=== PATIENT | female | born 1940 | race Caucasian/White ===

== ENCOUNTER → 2018-09-23 | Outpatient (CLI) | payer OTHER ==
[~2018-09-23] MED LIST: BUPROPION75 MG PO; CALCIUM 6001 TA1 PO; FLUOXETINE20 MG PO; LEVOTHYROXIN0.125 MG PO; LISINOPRIL/HCTZ1 TA3 PO; MULTIVITAMIN1 CTB PO; NORTRIPTYLINE50 MG PO; OCUVITE1 TA1 PO; OMEPRAZOLE20 M1; OMEPRAZOLE20 MG PO; PRAVASTATIN SOD40 MG PO; ROPINIROLE HYDRO2 M1 PO
[2018-09-25 22:04] LABS: ALTERNARIA ALTERNATA, IGE <0.10 kU/L (Class 0); AMERICAN ELM, IGE <0.10 kU/L (Class 0); ASPERGILLUS FUMIGATU, IGE <0.10 kU/L (Class 0); BERMUDA GRASS, IGE <0.10 kU/L (Class 0); BIRCH, COMMON SILVER IGE <0.10 kU/L (Class 0); CLADOSPORIUM HERBARU, IGE <0.10 kU/L (Class 0); CORN, IGE <0.10 kU/L (Class 0); D FARINAE MITE <0.10 kU/L (Class 0); D PTERONYSSINUS <0.10 kU/L (Class 0); DOG DANDER, IGE <0.10 kU/L (Class 0); IMMUNOGLOBULIN IgE 002170 19 IU/mL (0-100); MAPLE LEAF SYCAMORE, IGE <0.10 kU/L (Class 0); MAPLE/BOX ELDER, IGE <0.10 kU/L (Class 0); MILK (COW), IGE <0.10 kU/L (Class 0); MOUSE URINE IGE <0.10 kU/L (Class 0); PEANUT, IGE <0.10 kU/L (Class 0); PENICILLIUM CHRYSOGENUM, IGE <0.10 kU/L (Class 0); ROUGH PIGWEED, IGE <0.10 kU/L (Class 0); SHEEP SORREL (DOCK), IGE <0.10 kU/L (Class 0); SHORT RAGWEED, IGE <0.10 kU/L (Class 0); SOYBEAN, IGE <0.10 kU/L (Class 0); TIMOTHY, IGE <0.10 kU/L (Class 0); WALNUT TREE, IGE <0.10 kU/L (Class 0); WHEAT, IGE <0.10 kU/L (Class 0); WHITE ASH, IGE <0.10 kU/L (Class 0); WHITE MULBERRY, IGE <0.10 kU/L (Class 0); WHITE OAK, IGE <0.10 kU/L (Class 0)
== END | disposition home or self-care (01) ==
LOC: LAB 13:26
PROVIDERS: Family Medicine
DX: J31.0 Chronic rhinitis (principal)

== ENCOUNTER 2019-06-08 14:38 | Inpatient (IN) | payer OTHER ==
[~2019-06-08] VITALS: Ht 167.6 cm; Wt 98.9 kg
--- NOTE | ~2019-06-08 | CON ---
[place], [place] REPORT OF CONSULTATION NAME: HILARY WIGGINS UNIT #: [id number] ROOM: 411 DOCTOR: ZEUS LANDIN MD BIRTHDATE: [birth year] DOS: 06/08/2019 HISTORY OF PRESENT ILLNESS: The patient is a 79-year-old who has been known to our service because of the multiple antral ulceration linear in character post biopsies. The patient has been on aggressive therapy. Apparently, the patient discharged and readmitted today after not feeling well. The patient had a panel of blood work done and was found to have H and H of 12 and 40. Microcytic indices. INR was 1.1. Comprehensive metabolic panel elevated creatinine. Basic metabolic normal. Chest x-ray, no acute process. PAST MEDICAL HISTORY: Hypertension, AFib, depression, hypothyroidism, and hyperlipidemia. PAST SURGICAL HISTORY: Hysterectomy, cholecystectomy, and bilateral knee. SOCIAL HISTORY: Nonsmoker, nonalcohol consumer. FAMILY HISTORY: Noncontributory. ALLERGIES: PENICILLIN. MEDICATIONS: List has been reviewed. REVIEW OF SYSTEMS: HEENT: Denies double vision, blurred vision. RESPIRATORY: Admits to shortness of breath. CARDIOVASCULAR: Denies chest pain. DIGESTIVE SYSTEM: Gastric ulcers. PHYSICAL EXAMINATION: VITAL SIGNS: Stable. HEENT: Benign. NECK: Supple, no thyromegaly, no cervical lymphadenopathy. CHEST: Symmetric anatomy, decreased air entry. HEART: Normal sinus rhythm, no gallop, no murmur. ABDOMEN: Soft. No hepato-organomegaly. Bowel sounds present. Obesity. EXTREMITIES: No cyanosis, no pedal edema. NEUROLOGIC: Alert, oriented to time, place, and person. IMPRESSION: Readmission GI bleed and multi-antral ulcers. PLAN AND DISCUSSION: Continuation with Carafate, Protonix therapy, and clinical reassessment. Other adjunctive diagnoses has already been reassessed. [place], [place] REPORT OF CONSULTATION NAME: HILARY WIGGINS UNIT #: [id number] ROOM: 411 DOCTOR: ZEUS LANDIN MD BIRTHDATE: [birth year] ZEUS LANDIN MD CM:CONSTR:REPORT OF CONSULTATION [id number] 06/09/19 0659 interface
--- NOTE | ~2019-06-08 | EKG ---
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 RESP : 1940 Requested By: YOBANI LYNCH Order Number: [id number] Reading MD: Taylor Corado Measurements Intervals [place] Rate: 68 P: 50 MT: 136 QRS: -9 QRSD: 80 T: 100 QT: 531 QTc: 565 Interpretive Statements Sinus rhythm Borderline repolarization abnormality Prolonged QT interval Baseline wander in lead(s) II,III,aVF Compared to ECG 06/02/2019 15:55:52 Prolonged QT interval now present Atrial-paced complex(es) or rhythm no longer present Ventricular-paced complex(es) or rhythm no longer present T-wave abnormality no longer present Electronically Signed On 06-09-2019 5:46:52 PDT by Taylor Corado CM:EKGRPT:ELECTROCARDIOGRAM REPORT [id number] YOBANI WILKERSON DRAFT REPORT YOBANI LYNCH M.D.
--- NOTE | ~2019-06-08 | EKG ---
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
--- NOTE | ~2019-06-08 | O ---
[place], [place] OPERATIVE NOTE NAME: HILARY WIGGINS UNIT #: [id number] ROOM: 426 DOCTOR: ZEUS LANDIN MD BIRTHDATE: [birth year] DOS: 06/12/2019 GASTROENDOSCOPIC REPORT This is a 79-year-old patient who has presented with chief complaint of multi issues, suspected sepsis, incidentally find pneumobilia, persistence of her distress and eventually we were concerned if there is other etiologies to the pneumobilia of any fistulization and expected biliary leak out of previous knowledge. PROCEDURE: Today's procedure part of investigation is ERCP plus balloon sweep of common duct. PREMEDICATION: Propofol. SCOPE: Olympus side-viewing duodenoscope. REPORT: After putting the patient in left lateral position and application of lubricant to the scope, the scope was then entered. Thereafter, under direct visualization, advanced through the length of esophagus into the gastric pouch into duodenum. Ampulla of Vater was defined. This is exactly next to the duodenal diverticulum and periampullary diverticulum was photographed, cannulization of common duct directly was done and guidewire was negotiated to right hepatic radicle. A balloon size 12 was introduced over it, sweep of common duct produces no stone, no other pathology. Empty duct was documented after multiple sweeps, no leakage of dye outside expected anatomy was noticed. The patient extubated, tolerated the procedure well. 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 PLAN AND DISCUSSION: No contribution of biliary tract to her underlying distress that she is having. Plan and discussion, supportive management, pneumobilia is expected and is benign in her case. Thank you very much indeed for your kind referral. [place], [place] OPERATIVE NOTE NAME: HILARY WIGGINS UNIT #: [id number] ROOM: 426 DOCTOR: ZEUS LANDIN MD BIRTHDATE: [birth year] ZEUS LANDIN MD CM:OPRECORD:OPERATIVE NOTE 16 35 ZEUS LANDIN MD 06/26/19 0949 interface
[~2019-06-08 14:38] MED LIST changes: +DILTIAZEM ER120 MG PO; +DILTIAZEM HYDR180 M2 PO; +ELIQUIS5 M1 PO; +FLOMAX0.4 MG PO; +LEVOTHYROXINE100 MC1 PO; +LIPITOR10 MG PO; +METOPROLOL SUCC50 M1 PO; +Meclizine25 MG PO; +NEURONTIN600 MG PO; +PANTOPRAZOLE SO40 MG PO; +SYNTHROID,LEV112 MCG PO; +Sinemet Cr 25-11 TAB PO; +TOPROL XL25 MG PO; +TRAZODONE50 MG PO; +VITAMIN B122500 MC1 PO; +XALATAN 0.005%2.5 ML INTRAOC
[2019-06-08 14:46] VITALS: BP 129/55
[2019-06-08 15:40] LABS: BASO % 0.1 % (0.0-1.0); HEMATOCRIT 40.7 % (37.0-47.0); HEMOGLOBIN 12.9 g/dl (12.0-16.0); LYMPH # 0.9 10*3/uL (1.3-4.4); LYMPH % 8.9 % (27.0-41.0); MEAN CELL VOLUME 100.2 fl (81.0-99.0); MEAN CORPUSCULAR HGB 31.8 pg (27.0-31.0); MEAN CORPUSCULAR HGB CONC 31.7 g/dl (33.0-37.0); MEAN PLATELET VOLUME 10.1 fl (9.6-12.3); MONO # 1.3 10*3/uL (0.1-1.0); NEUT # 7.6 10*3/uL (2.3-7.9); NEUT % 77.5 % (47.0-73.0); PLATELET COUNT AUTOMATED 135 10*3/uL (130-400); RED BLOOD COUNT 4.06 10*6/uL (4.10-5.10); RED CELL DISTRI WIDTH 14.6 % (0-14.5); WHITE BLOOD COUNT 9.9 10*3/uL (4.8-10.8)
[2019-06-08 15:42] LABS: BILIRUBIN NEGATIVE (NEGATIVE); BLOOD NEGATIVE (NEGATIVE); CLARITY CLEAR (CLEAR); COLOR YELLOW (YELLOW); GLUCOSE NEGATIVE (NEGATIVE); KETONE NEGATIVE (NEGATIVE); LEUKO ESTERASE NEGATIVE (NEGATIVE); NITRITE POSITIVE (NEGATIVE); PH 6.5 (5.0-9.0); SPECIFIC GRAVITY 1.025 (1.005-1.030); UROBILINOGEN 0.2 E.U./dl (0.2-1.0)
[2019-06-08 15:45] VITALS: BP 128/50
[2019-06-08 15:55] LABS: INTERNATIONAL NORM RATIO 1.1 (2.0-3.5)
[2019-06-08 16:04] LABS: ALBUMIN 2.8 gm/dl (3.1-4.5); CREATININE 1.58 mg/dL (0.55-1.02); POTASSIUM 3.9 mmol/L (3.5-5.1); TOTAL PROTEIN 6.2 gm/dL (6.4-8.2); TROPONIN I 0.02 ng/ml (<0.045)
[2019-06-08 16:13] LABS: EPITHELIAL CELLS 21-30
[2019-06-08 16:14] LABS: BACTERIA 1+
[2019-06-08 17:24] VITALS: BP 124/52
[2019-06-08 18:05] VITALS: BP 137/57
[2019-06-08 20:00] VITALS: BP 112/57
[2019-06-09] VITALS: BP 113/75
[2019-06-09 06:45] LABS: ALBUMIN 2.6 gm/dl (3.1-4.5); CREATININE 1.56 mg/dL (0.55-1.02); POTASSIUM 4.1 mmol/L (3.5-5.1); TOTAL PROTEIN 6.1 gm/dL (6.4-8.2)
[2019-06-09 07:06] LABS: BASO % 0.2 % (0.0-1.0); EOS # 0.1 10*3/uL (0.0-0.4); EOS % 0.8 % (1.0-4.0); HEMATOCRIT 39.1 % (37.0-47.0); HEMOGLOBIN 11.9 g/dl (12.0-16.0); LYMPH # 0.9 10*3/uL (1.3-4.4); LYMPH % 9.8 % (27.0-41.0); MEAN CORPUSCULAR HGB 31.6 pg (27.0-31.0); MEAN CORPUSCULAR HGB CONC 30.4 g/dl (33.0-37.0); MEAN PLATELET VOLUME 10.4 fl (9.6-12.3); MONO # 0.9 10*3/uL (0.1-1.0); MONO % 9.9 % (3.0-9.0); NEUT # 7.3 10*3/uL (2.3-7.9); NEUT % 78.9 % (47.0-73.0); PLATELET COUNT AUTOMATED 117 10*3/uL (130-400); RED BLOOD COUNT 3.77 10*6/uL (4.10-5.10); RED CELL DISTRI WIDTH 14.8 % (0-14.5); WHITE BLOOD COUNT 9.3 10*3/uL (4.8-10.8)
[2019-06-09 07:37] LABS: MEAN CELL VOLUME 103.7 fl (81.0-99.0)
[2019-06-09 08:00] VITALS: BP 129/80
[2019-06-09 09:01] LABS: ACT PARTIAL THROMBO TIME 35.8 SECONDS (20.0-32.1); INTERNATIONAL NORM RATIO 1.1 (2.0-3.5)
[2019-06-09 12:00] VITALS: BP 130/78
[2019-06-09 16:00] VITALS: BP 148/90
[2019-06-09 20:00] VITALS: BP 106/42
[2019-06-10] VITALS (7 sets, daily range): BP systolic 92–123; BP diastolic 50–78
[2019-06-10 06:20] LABS: BASO % 0.2 % (0.0-1.0); CREATININE 1.44 mg/dL (0.55-1.02); EOS # 0.3 10*3/uL (0.0-0.4); HEMATOCRIT 37.5 % (37.0-47.0); HEMOGLOBIN 11.3 g/dl (12.0-16.0); LYMPH # 1.1 10*3/uL (1.3-4.4); LYMPH % 17.5 % (27.0-41.0); MEAN CELL VOLUME 103.9 fl (81.0-99.0); MEAN CORPUSCULAR HGB 31.3 pg (27.0-31.0); MEAN CORPUSCULAR HGB CONC 30.1 g/dl (33.0-37.0); MEAN PLATELET VOLUME 10.7 fl (9.6-12.3); MONO # 0.8 10*3/uL (0.1-1.0); MONO % 13.2 % (3.0-9.0); NEUT # 4.1 10*3/uL (2.3-7.9); NEUT % 64.9 % (47.0-73.0); PLATELET COUNT AUTOMATED 104 10*3/uL (130-400); POTASSIUM 4.3 mmol/L (3.5-5.1); RED BLOOD COUNT 3.61 10*6/uL (4.10-5.10); RED CELL DISTRI WIDTH 14.6 % (0-14.5); WHITE BLOOD COUNT 6.2 10*3/uL (4.8-10.8)
[2019-06-11] VITALS: BP 110/46
[2019-06-11 06:33] LABS: BILIRUBIN NEGATIVE (NEGATIVE); BLOOD NEGATIVE (NEGATIVE); CLARITY CLEAR (CLEAR); COLOR YELLOW (YELLOW); GLUCOSE NEGATIVE (NEGATIVE); KETONE NEGATIVE (NEGATIVE); LEUKO ESTERASE NEGATIVE (NEGATIVE); NITRITE NEGATIVE (NEGATIVE); SPECIFIC GRAVITY 1.025 (1.005-1.030); UROBILINOGEN 0.2 E.U./dl (0.2-1.0)
[2019-06-11 07:04] LABS: BASO % 0.2 % (0.0-1.0); EOS # 0.1 10*3/uL (0.0-0.4); EOS % 2.1 % (1.0-4.0); HEMATOCRIT 34.8 % (37.0-47.0); HEMOGLOBIN 10.7 g/dl (12.0-16.0); LYMPH # 1.1 10*3/uL (1.3-4.4); MEAN CELL VOLUME 100.9 fl (81.0-99.0); MEAN CORPUSCULAR HGB CONC 30.7 g/dl (33.0-37.0); MEAN PLATELET VOLUME 10.9 fl (9.6-12.3); MONO # 0.9 10*3/uL (0.1-1.0); MONO % 15.1 % (3.0-9.0); NEUT # 3.6 10*3/uL (2.3-7.9); NEUT % 62.4 % (47.0-73.0); PLATELET COUNT AUTOMATED 129 10*3/uL (130-400); RED BLOOD COUNT 3.45 10*6/uL (4.10-5.10); RED CELL DISTRI WIDTH 14.3 % (0-14.5); WHITE BLOOD COUNT 5.7 10*3/uL (4.8-10.8)
[2019-06-11 07:07] LABS: CREATININE 1.14 mg/dL (0.55-1.02); POTASSIUM 4.1 mmol/L (3.5-5.1)
[2019-06-11 07:09] LABS: MUCOUS TRACE; WBC 0-2 wbc/hpf (0-5)
[2019-06-11 08:00] VITALS: BP 108/50
[2019-06-11 12:00] VITALS: BP 110/42
[2019-06-11 16:00] VITALS: BP 103/55
[2019-06-11 20:00] VITALS: BP 116/45
[2019-06-12] VITALS (8 sets, daily range): BP systolic 115–139; BP diastolic 50–89
[2019-06-13] VITALS: BP 123/52
[2019-06-13 06:49] LABS: BASO % 0.2 % (0.0-1.0); EOS # 0.1 10*3/uL (0.0-0.4); HEMATOCRIT 35.8 % (37.0-47.0); HEMOGLOBIN 11.1 g/dl (12.0-16.0); LYMPH # 1.3 10*3/uL (1.3-4.4); LYMPH % 23.9 % (27.0-41.0); MEAN CELL VOLUME 101.1 fl (81.0-99.0); MEAN CORPUSCULAR HGB 31.4 pg (27.0-31.0); MONO # 0.7 10*3/uL (0.1-1.0); MONO % 12.7 % (3.0-9.0); NEUT # 3.3 10*3/uL (2.3-7.9); PLATELET COUNT AUTOMATED 138 10*3/uL (130-400); RED BLOOD COUNT 3.54 10*6/uL (4.10-5.10); RED CELL DISTRI WIDTH 14.4 % (0-14.5); WHITE BLOOD COUNT 5.4 10*3/uL (4.8-10.8)
[2019-06-13 07:04] LABS: CREATININE 1.23 mg/dL (0.55-1.02)
[2019-06-13 08:46] VITALS: BP 132/60
[2019-06-13 11:52] VITALS: BP 110/46
[2019-06-13 16:15] VITALS: BP 110/46
[2019-06-13 20:00] VITALS: BP 132/52
[2019-06-14] VITALS: BP 113/47
[2019-06-14 08:00] VITALS: BP 114/40
[2019-06-14 12:00] VITALS: BP 110/50
[2019-06-14 16:00] VITALS: BP 122/60
[2019-06-14 20:15] VITALS: BP 108/40
[2019-06-14 22:30] VITALS: BP 118/42
[2019-06-15] VITALS: BP 108/41
[2019-06-15 08:00] VITALS: BP 106/43
[2019-06-15 09:14] LABS: BASO % 0.1 % (0.0-1.0); EOS # 0.1 10*3/uL (0.0-0.4); EOS % 1.9 % (1.0-4.0); HEMATOCRIT 33.9 % (37.0-47.0); HEMOGLOBIN 10.5 g/dl (12.0-16.0); LYMPH # 1.3 10*3/uL (1.3-4.4); LYMPH % 19.6 % (27.0-41.0); MEAN CELL VOLUME 100.3 fl (81.0-99.0); MEAN CORPUSCULAR HGB 31.1 pg (27.0-31.0); MEAN PLATELET VOLUME 10.1 fl (9.6-12.3); MONO # 0.9 10*3/uL (0.1-1.0); MONO % 12.6 % (3.0-9.0); NEUT # 4.4 10*3/uL (2.3-7.9); NEUT % 65.4 % (47.0-73.0); PLATELET COUNT AUTOMATED 172 10*3/uL (130-400); RED BLOOD COUNT 3.38 10*6/uL (4.10-5.10); RED CELL DISTRI WIDTH 14.3 % (0-14.5); WHITE BLOOD COUNT 6.7 10*3/uL (4.8-10.8)
[2019-06-15 09:36] LABS: CREATININE 1.3 mg/dL (0.55-1.02); POTASSIUM 3.6 mmol/L (3.5-5.1)
[2019-06-15 12:00] VITALS: BP 109/45
[2019-06-15 16:00] VITALS: BP 105/46
[2019-06-15 20:00] VITALS: BP 130/49
[2019-06-15 22:20] VITALS: BP 104/38
[2019-06-16] VITALS: BP 127/96
[2019-06-16 02:15] VITALS: BP 132/54
[2019-06-16 05:00] VITALS: BP 118/49
[2019-06-16 06:41] LABS: BASO % 0.2 % (0.0-1.0); EOS # 0.2 10*3/uL (0.0-0.4); EOS % 2.6 % (1.0-4.0); HEMATOCRIT 33.9 % (37.0-47.0); HEMOGLOBIN 10.4 g/dl (12.0-16.0); LYMPH # 1.4 10*3/uL (1.3-4.4); LYMPH % 22.8 % (27.0-41.0); MEAN CELL VOLUME 100.3 fl (81.0-99.0); MEAN CORPUSCULAR HGB 30.8 pg (27.0-31.0); MEAN CORPUSCULAR HGB CONC 30.7 g/dl (33.0-37.0); MEAN PLATELET VOLUME 9.9 fl (9.6-12.3); MONO # 0.7 10*3/uL (0.1-1.0); MONO % 10.7 % (3.0-9.0); NEUT % 63.4 % (47.0-73.0); PLATELET COUNT AUTOMATED 207 10*3/uL (130-400); RED BLOOD COUNT 3.38 10*6/uL (4.10-5.10); RED CELL DISTRI WIDTH 14.2 % (0-14.5); WHITE BLOOD COUNT 6.2 10*3/uL (4.8-10.8)
[2019-06-16 06:53] LABS: CREATININE 1.46 mg/dL (0.55-1.02); POTASSIUM 3.5 mmol/L (3.5-5.1)
[2019-06-16 08:00] VITALS: BP 108/45
[2019-06-16 12:00] VITALS: BP 109/54
[2019-06-16] MEDS ORDERED: PANTOPRAZOLE SO40 MG PO (13:12)
[2019-06-16] MEDS ORDERED: ZOFRAN4 MG PO (13:12)
[2019-06-16] MEDS ORDERED: CYCLOBENZAPRINE10 MG PO (13:12)
[2019-06-16] MEDS ORDERED: METOCLOPRAMIDE H5 M1 PO (13:12)
[2019-06-16] MEDS ORDERED: Carafate1 GM/10 ML PO (13:12)
== END 2019-06-16 13:58 | disposition other institution (70) | DRG 689 ==
LOC: ED 14:38 → EDHOLD 16:36 → 4E 16:36
PROVIDERS: Internal Medicine; Physician Assistant; Student in an Organized Health Care Education/Training Program; ADMIT Family Medicine
PROC: 0F798ZZ Dilation of Common Bile Duct, Via Natural or Artificial Opening Endoscopic (ICD-10-PCS; principal; 2019-06-12)
PROC: BF101ZZ Fluoroscopy of Bile Ducts using Low Osmolar Contrast (ICD-10-PCS; principal; 2019-06-12)
DX: N30.01 Acute cystitis with hematuria (principal); N17.0 Acute kidney failure with tubular necrosis; K25.4 Chronic or unspecified gastric ulcer with hemorrhage; K29.51 Unspecified chronic gastritis with bleeding; K57.11 Diverticulosis of small intestine without perforation or abscess with bleeding; K91.89 Other postprocedural complications and disorders of digestive system; M54.9 Dorsalgia, unspecified; D75.89 Other specified diseases of blood and blood-forming organs; N18.3 Chronic kidney disease, stage 3 (moderate); E78.5 Hyperlipidemia, unspecified; G20 Parkinson's disease; F32.9 Major depressive disorder, single episode, unspecified; Z96.653 Presence of artificial knee joint, bilateral; M25.511 Pain in right shoulder; K59.00 Constipation, unspecified; E66.9 Obesity, unspecified; K83.8 Other specified diseases of biliary tract; E03.9 Hypothyroidism, unspecified; I12.9 Hypertensive chronic kidney disease with stage 1 through stage 4 chronic kidney disease, or unspecified chronic kidney disease; I48.91 Unspecified atrial fibrillation; R62.7 Adult failure to thrive; Y83.8 Other surgical procedures as the cause of abnormal reaction of the patient, or of later complication, without mention of misadventure at the time of the procedure; Z88.0 Allergy status to penicillin; Z90.49 Acquired absence of other specified parts of digestive tract; Z90.710 Acquired absence of both cervix and uterus; Z98.42 Cataract extraction status, left eye; Z98.41 Cataract extraction status, right eye; Z82.49 Family history of ischemic heart disease and other diseases of the circulatory system; Z82.3 Family history of stroke; Z83.3 Family history of diabetes mellitus; Z95.0 Presence of cardiac pacemaker; Z79.899 Other long term (current) drug therapy; Z68.35 Body mass index [BMI] 35.0-35.9, adult; Z79.890 Hormone replacement therapy; Y92.89 Other specified places as the place of occurrence of the external cause

== ENCOUNTER 2019-07-05 20:31 | Emergency (ER) | payer OTHER ==
[~2019-07-05] VITALS: Ht 167.6 cm; Wt 101.9 kg
[~2019-07-05 20:31] MED LIST changes: +B-12500 MC1 PO; +CYCLOBENZAPRINE10 MG PO; +Carafate1 GM/10 ML PO; +METOCLOPRAMIDE H5 M1 PO; -VITAMIN B122500 MC1 PO; +ZOFRAN4 MG PO
[2019-07-05 20:42] VITALS: BP 156/70
[2019-07-05 20:50] LABS: BILIRUBIN NEGATIVE (NEGATIVE); BLOOD NEGATIVE (NEGATIVE); CLARITY CLEAR (CLEAR); COLOR YELLOW (YELLOW); GLUCOSE NEGATIVE (NEGATIVE); KETONE NEGATIVE (NEGATIVE); LEUKO ESTERASE NEGATIVE (NEGATIVE); NITRITE NEGATIVE (NEGATIVE); UROBILINOGEN 0.2 E.U./dl (0.2-1.0)
[2019-07-05 21:00] LABS: RBC 0-2 rbc/hpf (0-2); WBC 0-2 wbc/hpf (0-5)
[2019-07-05 21:03] LABS: BASO % 0.4 % (0.0-1.0); EOS # 0.2 10*3/uL (0.0-0.4); HEMATOCRIT 39.4 % (37.0-47.0); HEMOGLOBIN 12.2 g/dl (12.0-16.0); LYMPH # 1.7 10*3/uL (1.3-4.4); LYMPH % 31.2 % (27.0-41.0); MEAN CELL VOLUME 100.3 fl (81.0-99.0); MEAN PLATELET VOLUME 9.5 fl (9.6-12.3); MONO # 0.5 10*3/uL (0.1-1.0); MONO % 9.6 % (3.0-9.0); NEUT % 54.6 % (47.0-73.0); PLATELET COUNT AUTOMATED 153 10*3/uL (130-400); RED BLOOD COUNT 3.93 10*6/uL (4.10-5.10); WHITE BLOOD COUNT 5.5 10*3/uL (4.8-10.8)
[2019-07-05 21:19] LABS: ALBUMIN 3.1 gm/dl (3.1-4.5); ALKALINE PHOSPHATASE 106 U/L (45-117); BUN 31 mg/dl (7-24); CHLORIDE 105 mmol/L (98-107); CREATININE 1.43 mg/dL (0.55-1.02); SGOT/AST 13 IU/L (3-35); SGPT/ALT 7 U/L (12-78); SODIUM 141 mmol/L (136-145); TOTAL PROTEIN 6.6 gm/dL (6.4-8.2)
[2019-07-05 21:24] LABS: TROPONIN I < 0.015 ng/ml (<0.045)
[2019-07-06] MEDS ORDERED: COLACE100 MG PO (14:05)
[2019-07-06] MEDS ORDERED: METOPROLOL SUCC25 M2 PO (14:06)
[2019-07-06] MEDS ORDERED: FLUTICASONE P15.8 ML INH (14:08)
[2019-07-06] MEDS ORDERED: DULOXETINE HCL30 MG PO (14:09)
[2019-07-06] MEDS ORDERED: LIDOCAINE PAIN1 EACH T (14:10)
[2019-07-06] MEDS ORDERED: SYNTHROID,LEV112 MCG PO (14:11)
[2019-07-06] MEDS ORDERED: GLYCOLAX119 GM PO (14:12)
[2019-07-06] MEDS ORDERED: DILTIAZEM 24HR180 MG PO (14:23)
== END 2019-07-05 22:00 | disposition home or self-care (01) ==
LOC: ED 20:31
PROVIDERS: Family Medicine
DX: I48.2 Chronic atrial fibrillation (principal); H53.8 Other visual disturbances; I12.9 Hypertensive chronic kidney disease with stage 1 through stage 4 chronic kidney disease, or unspecified chronic kidney disease; N18.3 Chronic kidney disease, stage 3 (moderate); E78.5 Hyperlipidemia, unspecified; E03.9 Hypothyroidism, unspecified; Z88.0 Allergy status to penicillin; Z79.899 Other long term (current) drug therapy; Z95.0 Presence of cardiac pacemaker; Z90.710 Acquired absence of both cervix and uterus; Z90.49 Acquired absence of other specified parts of digestive tract

== ENCOUNTER 2019-07-06 08:34 | Inpatient (IN) | payer OTHER ==
[2019-07-06] VITALS (8 sets, daily range): BP systolic 94–123; BP diastolic 48–76
[~2019-07-06] VITALS: Ht 167.6 cm; Wt 98.9 kg
--- NOTE | ~2019-07-06 | PR ---
[place], [place] PROGRESS NOTE NAME: HILARY WIGGINS UNIT #: [id number] ROOM: 504 DOCTOR: LINDA ALARCON MD BIRTHDATE: [birth year] DOS: 07/07/2019 REASON FOR VISIT: SVT and atrial fibrillation. SUBJECTIVE: The patient is feeling better. Denies any chest pain, palpitations. No PND, no orthopnea. She did have some cough with minimal sputum production, no hemoptysis. No fever and chills. No nausea or vomiting. REVIEW OF SYSTEMS: Review of 8 systems negative except as mentioned above. PHYSICAL EXAMINATION: VITAL SIGNS: Blood pressure 130/70, pulse 61, respiratory rate 18, weight 99 kg, BMI 35. RHYTHM STRIPS: The patient in sinus rhythm with occasional sinus tachycardia. GENERAL: Alert, comfortable, in no acute distress. HEENT: Pupils are round and equal, no jaundice. NECK: Supple, no distended neck veins, no carotid bruit. CHEST: Symmetrical, nontender. LUNGS: Clear to auscultation anteriorly. HEART: Regular rhythm, no S3. Grade 1/6 systolic murmur. ABDOMEN: Benign, nontender. Bowel sounds normal. EXTREMITIES: Showed no edema. Distal pulses palpable. SKIN: Warm and dry. No cyanosis, no clubbing. RECTAL: Deferred. GENITOURINARY: Deferred. MEDICATIONS AND LABORATORIES: Reviewed. IMPRESSION: 1. Paroxysmal supraventricular tachycardia, currently stable on increased dose of beta radha, Cardizem. 2. Paroxysmal atrial fibrillation. The patient was on anticoagulation with Eliquis. 3. Status post pacemaker. 4. Anemia. RECOMMENDATIONS: 1. Continue current medications. 2. Wean off her nasal oxygen. 3. If the patient gets tachycardia, increase her Cardizem. 4. Possible discharge tomorrow. 5. She should follow with her customer advisor specialist, Dr. Joaquín Dawn, in [place], [place]. 6. No family at bedside at the time of examination. [place], [place] PROGRESS NOTE NAME: HILARY WIGGINS UNIT #: [id number] ROOM: 504 DOCTOR: LINDA ALARCON MD BIRTHDATE: [birth year] LINDA ALARCON MD CM:ZARI 58 3 LINDA ALARCON MD 07/08/191 interface
--- NOTE | ~2019-07-06 | CON ---
[place], [place] REPORT OF CONSULTATION NAME: HILARY WIGGINS UNIT #: [id number] ROOM: 504 DOCTOR: DORIAN WINTERSLINDA BIRTHDATE: [birth year] DOS: 07/06/2019 CARDIOLOGY CONSULTATION REASON FOR CONSULTATION: SVT. HISTORY OF PRESENT ILLNESS: This is a 79-year-old patient with history of atrial fibrillation, SVT, chronic kidney disease, pacemaker, hypertension, was brought to the Emergency Room from [facility] for tachycardia. Apparently, she was seen yesterday for SVT and was discharged. Today morning, she noted to have heart racing as well as "some chest discomfort feeling" at that time. The patient was found to be tachycardic and sent to the Emergency Room. En route to the Emergency Room, the patient received intravenous adenosine and was converted to sinus rhythm. The patient was on Eliquis anticoagulation for her atrial fibrillation. She denies any further chest pains or palpitations. No PND, no orthopnea. No nausea, vomiting, diarrhea. No fever and chills. No cough or hemoptysis. No bladder or bowel symptoms. No neurologic symptoms. REVIEW OF SYSTEMS: Review of 10 systems negative except as mentioned above. PAST MEDICAL HISTORY: 1. Atrial fibrillation. 2. Supraventricular tachycardia. 3. Chronic kidney disease. 4. Pacemaker. 5. Depression. 6. Hypothyroidism. 7. Dyslipidemia. 8. Parkinson's disease. SOCIAL HISTORY: Nil contributory due to her age. FAMILY HISTORY: Father had multiple heart attacks, in his 90s from stroke. Mother has history of heart attack and stroke. ALLERGIES AND HOME MEDICATIONS: Reviewed. PHYSICAL EXAMINATION: VITAL SIGNS: Blood pressure 122/76, pulse 84, respiratory rate 17, weight 99 kg, BMI 35. GENERAL: Alert, comfortable, in no acute distress. HEENT: Pupils are round and equal. No jaundice. Tongue was moist and pharynx clear. NECK: Supple, no distended neck veins. No carotid bruit. CHEST: Symmetrical, nontender. LUNGS: Clear to auscultation bilaterally. HEART: Regular rhythm, no S3, no palpable thrills. ABDOMEN: Benign, nontender. Bowel sounds normal. [place], [place] REPORT OF CONSULTATION NAME: HILARY WIGGINS UNIT #: [id number] ROOM: [facility] DOCTOR: DORIAN WINTERS,LINDA BIRTHDATE: [birth year] EXTREMITIES: Showed trace edema. Distal pulses palpable. SKIN: Warm and dry. No cyanosis, no clubbing. RECTAL: Deferred. GENITOURINARY: Deferred. NEUROLOGIC: The patient is alert with no focal neurologic deficit. Labs and imaging studies reviewed. EKG reviewed. Pertinent labs including potassium 4.1, creatinine 1.39. Cardiac troponins are negative. Hemoglobin 11.7, platelets are 153,000. Echo from May 2019 showed EF 55-60% with trace of tricuspid regurgitation. IMPRESSION: 1. Paroxysmal supraventricular tachycardia. 2. History of atrial fibrillation. 3. Status post pacemaker implantation about 4 years ago. 4. Chronic kidney disease. 5. History of Parkinson's disease. 6. Non-morbid obesity. 7. Anemia. RECOMMENDATIONS: 1. The patient is currently feeling better. Blood pressures and heart rates are stable. 2. Increase her metoprolol to 25 mg twice a day and continue her Cardizem and Eliquis. 3. Monitor heart rate and blood pressures. 4. Check her TSH to rule out hyperthyroidism. 5. Continue empiric medical therapy due to her multiple comorbid conditions. 6. The patient denies any further chest pains except during her tachycardia. 7. No family at bedside at the time of examination. 8. The patient's pacemaker was interrogated couple of months ago per patient. She follows with a brush or broom cutter in [place], [place], Dr. Joaquín Dawn, and she will follow with him after discharge. LINDA ALARCON MD CM:CONSTR:REPORT OF CONSULTATION 7012 07/07/19 0236 interface
--- NOTE | ~2019-07-06 | EKG ---
[place], [place] ELECTROCARDIOGRAM REPORT NAME: HILARY WIGGINS UNIT #: [id number] ROOM: 504 DOCTOR: ROCK DRAFT REPORT BIRTHDATE: [birth year] [facility] Test Date: 2019-07-06 Test Time: 09:10:28 Pat Name: HILARY WIGGINS Department: Room: [facility] Gender: F Wine Maker: Elizabet Krueger : 1940 Requested By: YOBANI LYNCH Order Number: [id number] Reading MD: Taylor Corado Measurements Intervals [place] Rate: 76 P: 51 TN: 144 QRS: 6 QRSD: 73 T: 57 QT: 387 QTc: 436 Interpretive Statements Sinus rhythm Low voltage, precordial leads Compared to ECG 06/09/2019 00:58:50 Low QRS voltage now present Atrial-paced complex(es) or rhythm no longer present Ventricular-paced complex(es) or rhythm no longer present T-wave abnormality no longer present Prolonged QT interval no longer present Electronically Signed On 07-08-2019 8:01:52 PDT by Taylor Corado CM:EKGRPT:ELECTROCARDIOGRAM REPORT 0801 YOBANI WILKERSON DRAFT REPORT YOBANI LYNCH M.D.
--- NOTE | 2019-07-06 10:17 | NUR ---
PT IS RESTING IN BED WITH HER EYES CLOSED. SHE HAS NO COMPLAINTS AT THIS TIME OTHER THAN FEELING TIRED. PTS ELECTRIC PILE DRIVER OPERATOR SHOWS NSR. VITAL SIGNS STABLE. WILL CONTINUE TO MONITOR.
[2019-07-06 10:18] LABS: BASO % 0.2 % (0.0-1.0); EOS # 0.2 10*3/uL (0.0-0.4); EOS % 3.1 % (1.0-4.0); HEMATOCRIT 37.6 % (37.0-47.0); HEMOGLOBIN 11.7 g/dl (12.0-16.0); LYMPH # 1.3 10*3/uL (1.3-4.4); LYMPH % 26.1 % (27.0-41.0); MEAN CORPUSCULAR HGB 31.1 pg (27.0-31.0); MEAN CORPUSCULAR HGB CONC 31.1 g/dl (33.0-37.0); MEAN PLATELET VOLUME 9.7 fl (9.6-12.3); MONO # 0.5 10*3/uL (0.1-1.0); MONO % 9.9 % (3.0-9.0); NEUT # 3.1 10*3/uL (2.3-7.9); NEUT % 60.5 % (47.0-73.0); PLATELET COUNT AUTOMATED 155 10*3/uL (130-400); RED BLOOD COUNT 3.76 10*6/uL (4.10-5.10); RED CELL DISTRI WIDTH 15.5 % (0-14.5); WHITE BLOOD COUNT 5.1 10*3/uL (4.8-10.8)
[2019-07-06 10:29] LABS: ACT PARTIAL THROMBO TIME 28.8 SECONDS (20.0-32.1)
[2019-07-06 10:33] LABS: ALBUMIN 2.7 gm/dl (3.1-4.5); ALKALINE PHOSPHATASE 98 U/L (45-117); BUN 30 mg/dl (7-24); CHLORIDE 108 mmol/L (98-107); CREATININE 1.39 mg/dL (0.55-1.02); LIPASE 288 U/L (73-393); POTASSIUM 4.1 mmol/L (3.5-5.1); SGOT/AST 11 IU/L (3-35); SODIUM 143 mmol/L (136-145); TOTAL PROTEIN 6.1 gm/dL (6.4-8.2)
[2019-07-06 10:35] LABS: TROPONIN I < 0.015 ng/ml (<0.045)
[2019-07-06 10:48] LABS: SGPT/ALT < 6 U/L (12-78)
[2019-07-06 10:51] LABS: BILIRUBIN NEGATIVE (NEGATIVE); BLOOD NEGATIVE (NEGATIVE); CLARITY SL CLOUDY (CLEAR); COLOR YELLOW (YELLOW); GLUCOSE NEGATIVE (NEGATIVE); KETONE NEGATIVE (NEGATIVE); LEUKO ESTERASE NEGATIVE (NEGATIVE); NITRITE NEGATIVE (NEGATIVE); UROBILINOGEN 0.2 E.U./dl (0.2-1.0)
[2019-07-06 11:05] LABS: BACTERIA 2+
--- NOTE | 2019-07-06 11:12 | NUR ---
PT IS RESTING IN BED WITH EYES CLOSED. NO COMPLAINTS AT THIS TIME. NO SIGNS OF ACUTE DISTRESS AT THIS TIME. VITAL SIGNS WITH IN NORMAL LIMITS. RACIEL NOTIFIED THAT ALL TEST RESULTS ARE BACK. WILL CONTINUE TO MONITOR.
--- NOTE | 2019-07-06 11:37 | NUR ---
[facility] CALLED FOR AN UPDATE ON THE PT. NURSE FROM [facility] MADE AWARE OF PENDING ADMISSION.
--- NOTE | 2019-07-06 12:29 | NUR ---
CALLED TO THE FLOOR TO SEE IF READY FOR ADMISSION. THEY ARE CLEANING THE ROOM AND THEY WILL CONTACT BACK WHEN ROOM IS READY.
--- NOTE | 2019-07-06 12:58 | NUR ---
A 79, admitted to , under the services of ELAYNE Early DO with a diagnosis of SVT. Chief complaint is AWOKE WITH RAPID HEART RATE. Patient arrived via stretcher from ER. Monitor applied. Initial assessment completed. Vital signs taken and recorded. ELAYNE EARLY DO notified of admission to the unit. Orders received. See assessment for past medical history, medications and allergies. Patient and/or family oriented to unit. [facility] visitation policy reviewed. Clothing/patient valuable form completed. RENATA MACIAS
[2019-07-06] MEDS ORDERED: COLACE100 MG PO (14:05)
[2019-07-06] MEDS ORDERED: METOPROLOL SUCC25 M2 PO (14:06)
[2019-07-06] MEDS ORDERED: FLUTICASONE P15.8 ML INH (14:08)
[2019-07-06] MEDS ORDERED: DULOXETINE HCL30 MG PO (14:09)
[2019-07-06] MEDS ORDERED: LIDOCAINE PAIN1 EACH T (14:10)
[2019-07-06] MEDS ORDERED: SYNTHROID,LEV112 MCG PO (14:11)
[2019-07-06] MEDS ORDERED: GLYCOLAX119 GM PO (14:12)
[2019-07-06] MEDS ORDERED: DILTIAZEM 24HR180 MG PO (14:23)
--- NOTE | 2019-07-06 14:28 | NUR ---
MED REC COMPLETED PER RESIDENTIAL PAPERS - CALLED TO ADNITTING DOCTORS
--- NOTE | 2019-07-06 17:47 | NUR ---
DR JANET SHEN
--- NOTE | 2019-07-06 19:50 | NUR ---
Patient lying in bed, denies any chest pain at this time. All vital signs stable at this time. NSR on telemetry monitor. Patient left with call light in reach.
--- NOTE | 2019-07-06 22:14 | NUR ---
24 HR chart check completed.
[2019-07-07] VITALS: BP 82/49
[2019-07-07 08:00] VITALS: BP 130/70
--- NOTE | 2019-07-07 08:56 | NUR ---
PHYSICAL THERAPY Nursing screen received and chart reviewed. Recommend PT evaluation if decline in functional mobility presents. Thank you. Aide Turner,PT,DPT
--- NOTE | 2019-07-07 09:04 | NUR ---
Nursing screen received and chart reviewed. Patient admitted with SVT. If patient should have a decline in ADLs then refer to occupational therapy. Thank you. Salena Aguirre OTR/L
--- NOTE | 2019-07-07 09:18 | NUR ---
RESIDENT ROUNDED - ORDER FOR TYLENOL RECEIVED & GIVEN FOR C/O HEADACHE
--- NOTE | 2019-07-07 10:27 | NUR ---
LEISA spoke with [facility] who stated the patients discharge from their facility was placed on saturday07/03/19 due to the patients HR and BP. Patient is now into her Copay days and would be charged $172 daily. Per Kayce the patient does have a walker and is set up with [facility]. LEISA notified her Film Tests Checker. -LEISA Sun
[2019-07-07 11:55] VITALS: BP 104/60
--- NOTE | 2019-07-07 11:55 | NUR ---
MAUNAL BP TAKEN AT THIS TIME D/T ELEVATED HR. GY=551/60, AT BEDSIDE AND AWARE OF INCREASE HR AND BP. PATIENT'S NURSE JULIAN-RN MADE AWARE OF RESULTS. PATIENT IS ASYMPTOMATIC, CALL LIGHT WITHIN REACH.
[2019-07-07 12:00] VITALS: BP 113/54
--- NOTE | 2019-07-07 12:09 | NUR ---
REPEAT URINE BEING SENT D/T CONTAMINATION OF PREVIOUS SAMPLE
[2019-07-07 12:21] LABS: BILIRUBIN NEGATIVE (NEGATIVE); BLOOD NEGATIVE (NEGATIVE); CLARITY CLEAR (CLEAR); COLOR YELLOW (YELLOW); GLUCOSE NEGATIVE (NEGATIVE); KETONE NEGATIVE (NEGATIVE); LEUKO ESTERASE NEGATIVE (NEGATIVE); NITRITE NEGATIVE (NEGATIVE); SPECIFIC GRAVITY <= 1.005 (1.005-1.030); UROBILINOGEN 0.2 E.U./dl (0.2-1.0)
[2019-07-07 12:48] LABS: BACTERIA TRACE
[2019-07-07 12:49] LABS: EPITHELIAL CELLS 16-20; WBC 0-2 wbc/hpf (0-5)
--- NOTE | 2019-07-07 12:49 | NUR ---
PT WAS AT [facility] FOR SKILLED STAY. PER VADIM PT IS DOING WELL AND WAS SCHEDULED FOR DISCHARGE THIS SATURDAY FROM [facility]. SHE HAS A WALKER ORDERED AND HOME HEALTH SET UP THROUGH [facility]. TALKED WITH PT AND SHE IS OK WITH BEING DISCHARGED FROM HERE TO HOME. SHE STATES SHE LIVES WITH HER SON. NO OTHER NEEDS VOICED AT THIS TIME. WILL CONTINUE TO FOLLOW.
--- NOTE | 2019-07-07 13:33 | NUR ---
DR JANET SHEN
--- NOTE | 2019-07-07 15:32 | NUR ---
PHYSICAL THERAPY Physical therapy evaluation completed. Full details and evaluation to follow. Low complexity skilled PT evaluation performed ([id number]). PT will work on strength, transfers, bed mobility, gait, and balance per POC. Recommend home with home health at discharge. Thank you, Zaina Reddy, SPT Aide Turner,PT,DPT
--- NOTE | 2019-07-07 15:32 | NUR ---
Occupational Therapy evaluation completed on 5 with full eval to follow. Precautions include new ww use, unsteady in standing, impaired cognition, c/o arthritic pain right shoulder at SNF when exercising, moderate complexity level 62322 via chart review, testing and evaluation. Recommend OT per POC and home with home health SN, OT,PT,CASING MACHINE OPERATOR and supervision. Patient reports that [facility] Thank you. Harriet Aguirre OTR/l
[2019-07-07 15:51] VITALS: BP 109/42
[2019-07-07 20:00] VITALS: BP 125/50; BP 128/62
--- NOTE | 2019-07-07 23:52 | NUR ---
24 HR chart check completed.
[2019-07-08] VITALS: BP 117/46
--- NOTE | 2019-07-08 06:21 | NUR ---
PATIENT REQUESTING MEDICATION FOR RIGHT SHOULDER PAIN. TYLENOL ADMINISTERED PRESCRIBED. WILL MONITOR FOR EFFECTIVENESS.
--- NOTE | 2019-07-08 07:26 | NUR ---
Shift chart check completed.
--- NOTE | 2019-07-08 07:45 | NUR ---
OT NOTE Patient was seen this date for 15 minutes of occupational therapy treatment. Patient was supine in bed upon arrival and agreeable to OT treatment. Patient was A&O to self and place, disoriented to year. Patient oriented to year with options. Patient performed bed mobility with supervision. While seated EOB, patient educated on safe hand placement for ww use with good patient carryover. Patient performed functional mobility with CGA to restroom. Patient performed a toilet transfer with CGA with verbal cues for safe completion. Patient able to perform toileting hygiene and clothing management at supervision in stance. Patient stood at sink with CGA to complete grooming tasks. Patient's dynamic standing balance was challenged during grooming tasks. Patient demonstrated good balance for approximately 6 minutes. Patient returned to recliner with CGA with ww for completion of OT treatment. Patient had an 8/10 pain in the right shoulder throughout treatment. Patient alternated between L and R UE during grooming tasks. Patient would benefit from continued OT treatment to maximize independence in ADLs and functional mobility/transfers. Belle Henriquez, OTR/L
--- NOTE | 2019-07-08 08:00 | NUR ---
PHYSICAL THERAPY Patient seen this am 1:1 for therapy visit and was resting supine in bed upon therapist arrival. Patient reports chronic R shoulder pain / stiffness, 8/10, with limited flexion / abduction. Patient transfers supine to sit EOB with CGA x 1 and sit to stand SBA. Patient ambulates with use of wh walker, 25'x 2 to bathroom and back, demonstrating slow elva, steady gait pattern and no LOB this session. Patient returned to bedside chair and remained with call light, tray table and telephone. Will continue per POC as tolerated, total treatment time 16 minutes. Alexander De La Rosa, EAR NOSE THROAT PHYSICIAN
[2019-07-08 08:20] VITALS: BP 106/40
--- NOTE | 2019-07-08 08:27 | NUR ---
PT UP IN CHAIR ASKING IF SHE GETS TO GO HOME - ENCOURAGED TO COUGH TO CLEAR FINE CRACKLES PB (EFFECTIVE)
--- NOTE | 2019-07-08 11:10 | NUR ---
CARDIOLOGY CALLED & REQUESTED TO CALL THE FLOOR. DR JANET ADLER - WANTING TO DC IF OK WITH CARDIOLOGY
[2019-07-08] MEDS ORDERED: LOPRESSOR25 MG PO (11:31)
--- NOTE | 2019-07-08 11:38 | NUR ---
Hep Lock discontinued. Site asymptomatic. Pressure applied. Sterile dressing applied. RENATA MACIAS
--- NOTE | 2019-07-08 11:56 | NUR ---
Discharge instructions reviewed with patient/family. Patient receptive and verbalizes understanding. Follow-up care arranged. Written instructions given to patient/family. TAKEN OUT VIA WHEEL CHAIR RENATA MACIAS
--- NOTE | 2019-07-08 12:47 | NUR ---
REFERRAL FAXED TO [facility].
--- NOTE | 2019-07-09 10:12 | NUR ---
OCCUPATIONAL THERAPY CO-SIGN I approve of the Occupational Therapy notes written above. GABRIELA BAIRD OTR/[place]
--- NOTE | 2019-07-10 07:49 | NUR ---
PHYSICAL THERAPY CO-SIGN I approve of the Physical Therapy notes written above. ADRIANA VALVERDE PT, DPT
== END 2019-07-08 12:02 | disposition home health service (06) | DRG 391 ==
LOC: ED 08:34 → EDHOLD 11:54 → 5E 11:54
PROVIDERS: Internal Medicine; Physician Assistant; ADMIT Internal Medicine
DX: K21.9 Gastro-esophageal reflux disease without esophagitis (principal); E43 Unspecified severe protein-calorie malnutrition; I47.1 Supraventricular tachycardia; I95.9 Hypotension, unspecified; R73.9 Hyperglycemia, unspecified; N18.3 Chronic kidney disease, stage 3 (moderate); K25.9 Gastric ulcer, unspecified as acute or chronic, without hemorrhage or perforation; F32.9 Major depressive disorder, single episode, unspecified; R62.7 Adult failure to thrive; I12.9 Hypertensive chronic kidney disease with stage 1 through stage 4 chronic kidney disease, or unspecified chronic kidney disease; E78.5 Hyperlipidemia, unspecified; D53.9 Nutritional anemia, unspecified; I48.0 Paroxysmal atrial fibrillation; E66.01 Morbid (severe) obesity due to excess calories; Z96.653 Presence of artificial knee joint, bilateral; Z66 Do not resuscitate; Z51.5 Encounter for palliative care; E03.9 Hypothyroidism, unspecified; G20 Parkinson's disease; Z88.0 Allergy status to penicillin; Z79.899 Other long term (current) drug therapy; Z90.49 Acquired absence of other specified parts of digestive tract; Z90.710 Acquired absence of both cervix and uterus; Z98.42 Cataract extraction status, left eye; Z98.41 Cataract extraction status, right eye; Z82.49 Family history of ischemic heart disease and other diseases of the circulatory system; Z83.3 Family history of diabetes mellitus; Z82.3 Family history of stroke; Z95.0 Presence of cardiac pacemaker; Z68.35 Body mass index [BMI] 35.0-35.9, adult

== ENCOUNTER 2019-07-13 12:08 | Inpatient (IN) | payer OTHER ==
[~2019-07-13] VITALS: Ht 167.6 cm; Wt 98.2 kg
[~2019-07-13 12:08] MED LIST changes: +COLACE100 MG PO; +DILTIAZEM 24HR180 MG PO; +DULOXETINE HCL30 MG PO; +FLUTICASONE P15.8 ML INH; +GLYCOLAX119 GM PO; +LIDOCAINE PAIN1 EACH T; +LOPRESSOR25 MG PO; +METOPROLOL SUCC25 M2 PO
[2019-07-13 12:12] VITALS: BP 126/74
[2019-07-13 12:57] LABS: BASO % 0.6 % (0.0-1.0); EOS # 0.1 10*3/uL (0.0-0.4); EOS % 2.7 % (1.0-4.0); HEMOGLOBIN 12.2 g/dl (12.0-16.0); LYMPH # 1.4 10*3/uL (1.3-4.4); MEAN CORPUSCULAR HGB 31.3 pg (27.0-31.0); MEAN CORPUSCULAR HGB CONC 31.3 g/dl (33.0-37.0); MEAN PLATELET VOLUME 9.7 fl (9.6-12.3); MONO # 0.5 10*3/uL (0.1-1.0); MONO % 10.1 % (3.0-9.0); NEUT # 2.7 10*3/uL (2.3-7.9); NEUT % 56.4 % (47.0-73.0); PLATELET COUNT AUTOMATED 145 10*3/uL (130-400); RED CELL DISTRI WIDTH 15.3 % (0-14.5); WHITE BLOOD COUNT 4.8 10*3/uL (4.8-10.8)
[2019-07-13 13:10] LABS: ACT PARTIAL THROMBO TIME 27.3 SECONDS (20.0-32.1)
[2019-07-13 13:16] LABS: ALBUMIN 3.1 gm/dl (3.1-4.5); ALKALINE PHOSPHATASE 107 U/L (45-117); BUN 21 mg/dl (7-24); CHLORIDE 107 mmol/L (98-107); POTASSIUM 4.2 mmol/L (3.5-5.1); SGOT/AST 16 IU/L (3-35); SGPT/ALT 7 U/L (12-78); SODIUM 141 mmol/L (136-145); TOTAL PROTEIN 6.7 gm/dL (6.4-8.2)
[2019-07-13 13:23] LABS: TROPONIN I < 0.015 ng/ml (<0.045)
--- NOTE | 2019-07-13 14:27 | NUR ---
INFORMED THAT HOME MEDS ARE VERIFIED AND UPDATED BY PATIENT.
[2019-07-13] MEDS ORDERED: PROTONIX40 MG PO (14:36)
[2019-07-13] MEDS ORDERED: METOPROLOL25 MG PO (14:37)
[2019-07-13] MEDS ORDERED: BAYER ASPIRIN C81 MG PO (14:44)
[2019-07-13 14:45] VITALS: BP 117/58
[2019-07-13] MEDS ORDERED: SLOW-MAG71.5 MG PO (14:45)
--- NOTE | 2019-07-13 14:45 | NUR ---
A 79, admitted to , under the services of ELAYNE Early DO with a diagnosis of Palpatations. Chief complaint is Fast Heart Rate, Palpatations. Patient arrived via stretcher from ER. Monitor applied. Initial assessment completed. Vital signs taken and recorded. ELAYNE EARLY DO notified of admission to the unit. Orders received. See assessment for past medical history, medications and allergies. Patient and/or family oriented to unit. [address] visitation policy reviewed. Clothing/patient valuable form completed. YOLIS JOHANSEN
[2019-07-13] MEDS ORDERED: OCUVITE ADULT1 EAC1 PO (14:46)
[2019-07-13] MEDS ORDERED: Meclizine25 MG PO (14:46)
[2019-07-13] MEDS ORDERED: REXULTI2 MG PO (14:47)
--- NOTE | 2019-07-13 15:18 | NUR ---
Notified Julia Gracia CNP that patient is on unit and med rec is up to date and complete. See new orders.
--- NOTE | 2019-07-13 16:07 | NUR ---
Message left with [facility] regarding consult for A-Fib/SVT.
--- NOTE | 2019-07-13 17:50 | NUR ---
Tylenol given per request for c/o pain in her right leg rated 7/10. She states it start right above the knee and goes towards her toes. She also state "it comes and goes." Will monitor.
--- NOTE | 2019-07-13 18:15 | NUR ---
Spoke with rep at [employer] regarding pace maker interogation. He said it does not need interrogated for A-fib/SVT. He said the pace maker does not decrease the rythm of the heart. He also stated the order for an interrogation must come from cardiology.
[2019-07-13 19:41] LABS: BILIRUBIN NEGATIVE (NEGATIVE); BLOOD NEGATIVE (NEGATIVE); CLARITY SL CLOUDY (CLEAR); COLOR YELLOW (YELLOW); GLUCOSE NEGATIVE (NEGATIVE); KETONE NEGATIVE (NEGATIVE); LEUKO ESTERASE NEGATIVE (NEGATIVE); NITRITE NEGATIVE (NEGATIVE); UROBILINOGEN 0.2 E.U./dl (0.2-1.0)
--- NOTE | 2019-07-13 19:49 | NUR ---
INFORMED THAT THIS NURSE DISCUSS WITH PATIENT CODE STATUS. PATIENT EDUCATED ON DNRCC-A D/T ORDER STATING THAT SHE IS BUT NO SIGNED PAPER WORK. PATIENT STATES THAT SHE WANT RESUSCITATIVE MEASURES TO BE DONE. ORDER CHANGED UNDER .
[2019-07-13 19:53] LABS: EPITHELIAL CELLS 16-20
[2019-07-13 19:54] LABS: BACTERIA 1+
[2019-07-13 20:00] VITALS: BP 125/57
--- NOTE | 2019-07-13 23:30 | NUR ---
ASSUMED CARE OF PT AT THIS TIME. PT IS ASLEEP IN BED. RESPIRATIONS EASY. NO S/S OF DISTRESS NOTED. WILL MONITOR. CALL LIGHT LEFT IN REACH.
[2019-07-14] VITALS: BP 108/53
[2019-07-14 04:45] VITALS: BP 137/59
--- NOTE | 2019-07-14 05:02 | NUR ---
PT HAD BRIEF EPISODE WHERE HR ELEVATED INTO LOW 100S-110S. NO LONGER THAN 5 SECONDS. PO METOPROLOL SCHEDULED FOR 0600 GIVEN EARLY. PT DENIES ANY SYMPTOMS AT THIS TIME. WILL MONITOR. CALL LIGHT IN REACH.
[2019-07-14 07:23] LABS: BASO % 0.6 % (0.0-1.0); EOS # 0.2 10*3/uL (0.0-0.4); EOS % 4.5 % (1.0-4.0); HEMATOCRIT 38.7 % (37.0-47.0); HEMOGLOBIN 12.1 g/dl (12.0-16.0); LYMPH # 1.6 10*3/uL (1.3-4.4); LYMPH % 34.7 % (27.0-41.0); MEAN CORPUSCULAR HGB 31.3 pg (27.0-31.0); MEAN CORPUSCULAR HGB CONC 31.3 g/dl (33.0-37.0); MONO # 0.5 10*3/uL (0.1-1.0); MONO % 11.6 % (3.0-9.0); NEUT # 2.2 10*3/uL (2.3-7.9); NEUT % 48.4 % (47.0-73.0); PLATELET COUNT AUTOMATED 141 10*3/uL (130-400); RED BLOOD COUNT 3.87 10*6/uL (4.10-5.10); RED CELL DISTRI WIDTH 15.5 % (0-14.5); WHITE BLOOD COUNT 4.6 10*3/uL (4.8-10.8)
[2019-07-14 08:00] VITALS: BP 133/57
[2019-07-14 08:02] LABS: BUN 22 mg/dl (7-24); CHLORIDE 104 mmol/L (98-107); CREATININE 1.44 mg/dL (0.55-1.02); PHOSPHOROUS 3.7 mg/dL (2.5-4.9); POTASSIUM 4.1 mmol/L (3.5-5.1); SGOT/AST 14 IU/L (3-35); SODIUM 139 mmol/L (136-145); TOTAL PROTEIN 6.4 gm/dL (6.4-8.2)
[2019-07-14 08:17] LABS: ALKALINE PHOSPHATASE 97 U/L (45-117); SGPT/ALT < 6 U/L (12-78)
--- NOTE | 2019-07-14 08:45 | NUR ---
Contacted [facility] regarding a referral for placement. [facility] stating patient is out of snf days and would be required to pay 2 weeks of copay $2,400 upfront before they will consider referral. Patient stating she is unable to pay the copayment at this time.
--- NOTE | 2019-07-14 08:49 | NUR ---
Dr. Tovar called to verify I received message that patient is to be NPO for stress test. She also notified me that Dr. Monet does want the pace maker interrogated. I called [employer] see note and see new orders.
--- NOTE | 2019-07-14 08:50 | NUR ---
Spoke with Teodora from [employer] regarding interrogation of pacemaker. She said she will get this request "out right now."
--- NOTE | 2019-07-14 09:00 | NUR ---
Maintenance Equipment Operator in to talk to patient. Patient states lives at home with family. There are few steps in the home. Physician: adria morales [facility] health services: [facility] Patient's level of ADLs: MINIMAL ASSIST Patient has working utilities: all working DME: [employer] Follow-up physician's appointment after d/c: will be made by hospitalist nurse director upon discharge Does patient want to access PORTAL?: no Discharge plan discussed with patient, she states she lives at home with son, recently was discharged from [facility] and feels she needs to return for rehab, liaison planner will refer to [facility], patient will need and insurance precert prior to being discharged, case management will follow. LYRIC CROWE
--- NOTE | 2019-07-14 09:05 | NUR ---
Tevin from [employer] called to notify that he will be in after 1500 today to interrigate pace maker.
--- NOTE | 2019-07-14 09:08 | NUR ---
PHYSICAL THERAPY Physical therapy evaluation complete, 4E. Full evaluation/details to follow. Low complexity PT evaluation (85650) per chart review and evaluation. PT to progress transfers, gait, LE strength per POC. Recommend SNF at discharge. Thank you. Aide Turner,PT,DPT
--- NOTE | 2019-07-14 09:08 | NUR ---
Occupational Therapy evaluation completed on the 4th floor with full eval to follow. low complexity level. precautions: fall risk, alarm, decreased endurance. Recommend SNF. Patient to work on safety with transfers and ADLs. Thank you for this referral, Deborah Gonsalez OTR/L
--- NOTE | 2019-07-14 11:15 | NUR ---
INFORMED CONSENT OBTAINED FOR LEXISCAN NUCLEAR STRESS TEST WITH DR. MACK. RESTING EKG ATRIAL PACED WITH A HR OF 60 AND BP OF 112/74. LUNGS CLEAR WITH SPO2 OF 97% ON ROOM AIR. PT COMPLETED A 1:00 LEXISCAN PROTOCOL RECEIVING LEXISCAN 0.4 MG IV OVER 10 SECONDS. HAD NO CHEST PAIN OR ANY EKG CHANGES. DID C/O "THROAT DISCOMFORT AND STOMACH CRAMPING" THAT WAS RELIEVED IN RECOVERY. HAD A PEAK HR OF 72 WITH BP OF 102/40. LAST RECOVERY HR OF 70 WITH BP OF 110/54. AWAITING SCANNING IN STABLE CONDITION.
--- NOTE | 2019-07-14 11:40 | NUR ---
PACEMAKER MANAGER BUSINESS MANAGEMENT HERE AND INTEROGATED PACEMAKER. DR. MACK PRESENT.
--- NOTE | 2019-07-14 14:37 | NUR ---
Patient updated clinicals and therapy evals faxed to [facility] for referral. Patient requires precert, waiting for auth.
[2019-07-14 16:00] VITALS: BP 147/65
[2019-07-14 20:00] VITALS: BP 139/57
[2019-07-15] VITALS: BP 106/51
--- NOTE | 2019-07-15 02:39 | NUR ---
PT ASLEEP IN BED AT THIS TIME. NO S/S OF DISTRESS NOTED. O2 IN USE VIA 2L NC. WILL MONITOR. CALL LIGHT IN REACH. BED ALARM INTACT.
[2019-07-15 04:00] VITALS: BP 107/51
--- NOTE | 2019-07-15 04:04 | NUR ---
PT MEDICATED WITH PO TYLENOL PER PRN ORDER FOR C/O PAIN IN R SHOULDER RATED 8/10. WILL MONITOR EFFECTIVENESS. CALL LIGHT LEFT IN REACH.
[2019-07-15 05:00] VITALS: BP 112/52
--- NOTE | 2019-07-15 07:00 | NUR ---
ARRIVED ON SHIFT, INTRODUCED TO PATIENT, BEDSIDE REPORT RECEIVED, WHITE BOARD UPDATED NO NEEDS VOICED AT THIS TIME.
--- NOTE | 2019-07-15 07:24 | NUR ---
Shift chart check completed.
[2019-07-15 08:00] VITALS: BP 122/70
--- NOTE | 2019-07-15 08:00 | NUR ---
PHYSICAL THERAPY Patient seen this am 1:1 for therapy visit and was supine in bed upon therapist arrival. Patient identified by name / and reports no new c/o's at this time. Patient transfers supine to sit EOB with Mod A and sit to stand MIN A. 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 Patient very cautious during 90/180 turns and needed v/c to increased stride / heel strike. Patient returned to EOB sit with mild fatigue and remained under Nurse Winter Supervision who arrived to assess patient. Will continue per POC as tolerated to improve safe functional transfers / mobility, total treatment time 16 minutes. Alexander De La Rosa, RADIO INSTALLER
--- NOTE | 2019-07-15 08:15 | NUR ---
OT NOTE Pt was seen this A.m. 1:1 for 15 minute OT session. Upon arrival pt was supine in bed. Pt identified by name and and had no complaints at this time. Pt presented to therapy with continuous 2L-O2 via NC and a resting heart rate of 60 bpm. Pt transferred supine to sit EOB with Naveed and use of bed rail for UE support. Sit to stand completed from bed level with Naveed LENS GAUGER followed by functional mobility into the bathroom with Naveed LENS GAUGER. Pt had three episodes of unsteady gait that required Naveed to correct. Pt then transferred on/off standard commode with CGA and use of grab bar for UE support. Clothing management completed with CGA while standing and toilet hygiene completed with supervision while seated. Pt then stood sink side while washing her hands with CGA. Functional mobility then completed back to the EOB where she was left sitting upright under Nurse Max supervision. Continue with rec D/C plan to SNF. SLAVA Hopson
--- NOTE | 2019-07-15 08:21 | NUR ---
[facility] and can [facility] if medically stable for discharge. Hospitalists notified.
[2019-07-15] MEDS ORDERED: DILTIAZEM CD240 MG PO (09:52)
--- NOTE | 2019-07-15 10:43 | NUR ---
OT SUSHMA I APPROVE OF THE NOTES WRITTEN ABOVE. THANK YOU. TOD SURESH, OTR/L
--- NOTE | 2019-07-15 11:19 | NUR ---
Patient is discharged to [facility], transportation scheduled for 11:45 with JOSE JUAN Stahl, nursing/snack steward and son Harvey all notified.
--- NOTE | 2019-07-15 11:27 | NUR ---
CALL PLACED TO [facility], SPOKE WITH LINE MAINTAINER SECTION DOUGLAS BENSON, GAVE NURSE TO NURSE REPORT, NO QUESTIONS VOICED, ADVISED THAT AMBULANCE WILL BE HER SOON.
--- NOTE | 2019-07-15 11:40 | NUR ---
Discharge instructions reviewed with patient/family. Patient receptive and verbalizes understanding. Follow-up care arranged. Written instructions given to patient/family. MONITOR AND IV REMOVED. DEION NUR
--- NOTE | 2019-07-16 07:32 | NUR ---
PHYSICAL THERAPY CO-SIGN I approve of the Physical Therapy notes written above. ADRIANA VALVERDE PT,DPT
== END 2019-07-15 11:50 | disposition other institution (70) | DRG 308 ==
LOC: ED 12:08 → EDHOLD 13:13 → 4E 13:13
PROVIDERS: Emergency Medicine; Registered Nurse; ADMIT Internal Medicine
PROC: 4A02XM4 Measurement of Cardiac Total Activity, External Approach (ICD-10-PCS; principal; 2019-07-14)
PROC: 4B02XSZ Measurement of Cardiac Pacemaker, External Approach (ICD-10-PCS; principal; 2019-07-14)
PROC: 3E073KZ Introduction of Other Diagnostic Substance into Coronary Artery, Percutaneous Approach (ICD-10-PCS; principal; 2019-07-14)
DX: I47.1 Supraventricular tachycardia (principal); E43 Unspecified severe protein-calorie malnutrition; D53.9 Nutritional anemia, unspecified; I48.0 Paroxysmal atrial fibrillation; R07.9 Chest pain, unspecified; R53.1 Weakness; E83.41 Hypermagnesemia; I12.9 Hypertensive chronic kidney disease with stage 1 through stage 4 chronic kidney disease, or unspecified chronic kidney disease; E78.2 Mixed hyperlipidemia; N18.3 Chronic kidney disease, stage 3 (moderate); Z96.653 Presence of artificial knee joint, bilateral; G20 Parkinson's disease; I37.1 Nonrheumatic pulmonary valve insufficiency; F32.9 Major depressive disorder, single episode, unspecified; E03.9 Hypothyroidism, unspecified; Z95.0 Presence of cardiac pacemaker; Z79.01 Long term (current) use of anticoagulants; Z88.0 Allergy status to penicillin; Z90.710 Acquired absence of both cervix and uterus; Z90.49 Acquired absence of other specified parts of digestive tract; Z98.42 Cataract extraction status, left eye; Z98.41 Cataract extraction status, right eye; Z82.3 Family history of stroke; Z82.49 Family history of ischemic heart disease and other diseases of the circulatory system; Z83.3 Family history of diabetes mellitus; Z79.82 Long term (current) use of aspirin; Z79.899 Other long term (current) drug therapy; Z68.34 Body mass index [BMI] 34.0-34.9, adult

== ENCOUNTER → 2020-03-24 | Outpatient (CLI) | payer OTHER ==
[~2020-03-24] MED LIST changes: +BAYER ASPIRIN C81 MG PO; +DILTIAZEM CD240 MG PO; +METOPROLOL25 MG PO; +OCUVITE ADULT1 EAC1 PO; +PROTONIX40 MG PO; +REXULTI2 MG PO; +SLOW-MAG71.5 MG PO
[2020-03-24 14:26] LABS: BASO % 0.3 % (0.0-1.0); EOS # 0.2 10*3/uL (0.0-0.4); EOS % 2.3 % (1.0-4.0); HEMATOCRIT 42.2 % (37.0-47.0); LYMPH # 1.8 10*3/uL (1.3-4.4); LYMPH % 22.7 % (27.0-41.0); MEAN CELL VOLUME 101.4 fl (81.0-99.0); MEAN CORPUSCULAR HGB 31.5 pg (27.0-31.0); MEAN PLATELET VOLUME 9.2 fl (9.6-12.3); MONO # 0.7 10*3/uL (0.1-1.0); MONO % 9.1 % (3.0-9.0); NEUT # 5.1 10*3/uL (2.3-7.9); PLATELET COUNT AUTOMATED 182 10*3/uL (130-400); RED BLOOD COUNT 4.16 10*6/uL (4.10-5.10); RED CELL DISTRI WIDTH 14.6 % (0-14.5); WHITE BLOOD COUNT 7.9 10*3/uL (4.8-10.8)
[2020-03-24 14:40] LABS: ALBUMIN 3.2 gm/dl (3.1-4.5); CREATININE 1.5 mg/dL (0.55-1.02); POTASSIUM 4.2 mmol/L (3.5-5.1); TOTAL PROTEIN 6.5 gm/dL (6.4-8.2)
== END | disposition home or self-care (01) ==
LOC: LAB 13:52
PROVIDERS: Internal Medicine Nephrology
DX: I12.9 Hypertensive chronic kidney disease with stage 1 through stage 4 chronic kidney disease, or unspecified chronic kidney disease (principal); N18.3 Chronic kidney disease, stage 3 (moderate); D63.1 Anemia in chronic kidney disease; Q60.0 Renal agenesis, unilateral; R32 Unspecified urinary incontinence; M19.90 Unspecified osteoarthritis, unspecified site; G47.33 Obstructive sleep apnea (adult) (pediatric); E78.5 Hyperlipidemia, unspecified; E87.0 Hyperosmolality and hypernatremia; Z95.0 Presence of cardiac pacemaker

== ENCOUNTER 2020-05-01 12:59 | Emergency (ER) | payer OTHER ==
[~2020-05-01] VITALS: Ht 167.6 cm; Wt 103.4 kg
[2020-05-01 13:11] VITALS: BP 149/63
[2020-05-01] MEDS ORDERED: TRAMADOL HCL50 MG PO (17:19)
== END 2020-05-01 17:35 | disposition home or self-care (01) ==
LOC: ED 12:59
DX: S02.2XXA Fracture of nasal bones, initial encounter for closed fracture (principal); S86.912A Strain of unspecified muscle(s) and tendon(s) at lower leg level, left leg, initial encounter; S60.042A Contusion of left ring finger without damage to nail, initial encounter; S50.11XA Contusion of right forearm, initial encounter; S29.9XXA Unspecified injury of thorax, initial encounter; Z88.0 Allergy status to penicillin; Z79.899 Other long term (current) drug therapy; Z79.82 Long term (current) use of aspirin; W18.39XA Other fall on same level, initial encounter; Y93.89 Activity, other specified; Y92.481 Parking lot as the place of occurrence of the external cause; Y99.8 Other external cause status

== ENCOUNTER → 2020-09-29 | Outpatient (CLI) | payer MEDICARE ==
[~2020-09-29] MED LIST changes: +TRAMADOL HCL50 MG PO
== END | disposition home or self-care (01) ==
LOC: COVID19 08:19
PROVIDERS: ATTEND Family Medicine
DX: Z20.828 Contact with and (suspected) exposure to other viral communicable diseases (principal); J32.1 Chronic frontal sinusitis

== ENCOUNTER → 2020-10-24 | Outpatient (CLI) | payer MEDICARE | END | disposition home or self-care (01) | LOC: COVID19 08:03 | PROVIDERS: ATTEND Internal Medicine Clinical Cardiac Electrophysiology | DX: Z01.818 Encounter for other preprocedural examination (principal); Z20.822 Contact with and (suspected) exposure to COVID-19 ==

== ENCOUNTER → 2020-12-23 | Outpatient (CLI) | payer MEDICARE | END | disposition home or self-care (01) | LOC: COVID19 09:48 | PROVIDERS: ATTEND Internal Medicine | DX: Z20.822 Contact with and (suspected) exposure to COVID-19 (principal) ==

== ENCOUNTER → 2021-01-16 | Outpatient (CLI) | payer MEDICARE | END | disposition home or self-care (01) | LOC: COVID19 09:21 | PROVIDERS: ATTEND Internal Medicine Clinical Cardiac Electrophysiology | DX: Z01.818 Encounter for other preprocedural examination (principal); Z20.822 Contact with and (suspected) exposure to COVID-19 ==

== ENCOUNTER → 2021-03-30 | Outpatient (CLI) | payer MEDICARE | END | disposition home or self-care (01) | LOC: RAD 14:36 | PROVIDERS: ATTEND Student in an Organized Health Care Education/Training Program | DX: M51.36 Other intervertebral disc degeneration, lumbar region (principal); M47.816 Spondylosis without myelopathy or radiculopathy, lumbar region; M41.86 Other forms of scoliosis, lumbar region; M43.16 Spondylolisthesis, lumbar region; M48.07 Spinal stenosis, lumbosacral region; M48.061 Spinal stenosis, lumbar region without neurogenic claudication; M25.78 Osteophyte, vertebrae; Z95.828 Presence of other vascular implants and grafts ==

== ENCOUNTER 2021-04-07 18:49 | Emergency (ER) | payer MEDICARE ==
[2021-04-07 18:53] VITALS: BP 140/64
[2021-04-07 19:15] LABS: BASO % 0.2 % (0.0-1.0); HEMATOCRIT 40.7 % (37.0-47.0); LYMPH # 0.8 10*3/uL (1.3-4.4); MEAN CELL VOLUME 97.6 fl (81.0-99.0); MEAN CORPUSCULAR HGB 30.5 pg (27.0-31.0); MEAN CORPUSCULAR HGB CONC 31.2 g/dl (33.0-37.0); MEAN PLATELET VOLUME 9.7 fl (9.6-12.3); MONO % 0.8 % (3.0-9.0); NEUT # 3.9 10*3/uL (2.3-7.9); NEUT % 82.6 % (47.0-73.0); PLATELET COUNT AUTOMATED 184 10*3/uL (130-400); RED BLOOD COUNT 4.17 10*6/uL (4.10-5.10); RED CELL DISTRI WIDTH 14.4 % (0-14.5); WHITE BLOOD COUNT 4.8 10*3/uL (4.8-10.8)
[2021-04-07 19:32] LABS: ALKALINE PHOSPHATASE 128 U/L (45-117); BUN 29 mg/dl (7-24); CHLORIDE 106 mmol/L (98-107); CREATININE 1.37 mg/dL (0.55-1.02); POTASSIUM 4.5 mmol/L (3.5-5.1); SGOT/AST 10 IU/L (3-35); SGPT/ALT 19 U/L (12-78); SODIUM 138 mmol/L (136-145); TOTAL PROTEIN 7.2 gm/dL (6.4-8.2)
[2021-04-07 19:34] LABS: TROPONIN I < 0.015 ng/ml (<0.045)
== END 2021-04-07 20:58 | disposition home or self-care (01) ==
LOC: ED 18:49
PROVIDERS: Internal Medicine
DX: R73.9 Hyperglycemia, unspecified (principal); N17.9 Acute kidney failure, unspecified; N18.9 Chronic kidney disease, unspecified; F41.9 Anxiety disorder, unspecified; E88.09 Other disorders of plasma-protein metabolism, not elsewhere classified; Z88.0 Allergy status to penicillin; Z79.899 Other long term (current) drug therapy; Z98.890 Other specified postprocedural states; Z90.49 Acquired absence of other specified parts of digestive tract; Z90.711 Acquired absence of uterus with remaining cervical stump

== ENCOUNTER → 2021-05-01 | Outpatient (CLI) | payer MEDICARE ==
[~2021-05-01] MED LIST changes: +ABILIFY2 MG PO; +CYMBALTA60 MG PO; +DONEPEZIL HYDROC5 MG PO; +LATANOPROST2.5 ML OP; +PREDNISONE50 MG PO; +REQUIP2 MG PO; +SERTRALINE HYDR50 MG PO; +VOLTAREN ARTHRI20 GM T
[2021-05-01 14:31] LABS: BASO % 0.2 % (0.0-1.0); EOS # 0.1 10*3/uL (0.0-0.4); EOS % 1.9 % (1.0-4.0); HEMATOCRIT 42.5 % (37.0-47.0); LYMPH # 2.1 10*3/uL (1.3-4.4); MEAN CELL VOLUME 98.4 fl (81.0-99.0); MEAN CORPUSCULAR HGB 30.1 pg (27.0-31.0); MEAN CORPUSCULAR HGB CONC 30.6 g/dl (33.0-37.0); MEAN PLATELET VOLUME 9.8 fl (9.6-12.3); MONO # 0.5 10*3/uL (0.1-1.0); MONO % 9.4 % (3.0-9.0); NEUT # 2.5 10*3/uL (2.3-7.9); NEUT % 48.3 % (47.0-73.0); PLATELET COUNT AUTOMATED 189 10*3/uL (130-400); RED BLOOD COUNT 4.32 10*6/uL (4.10-5.10); RED CELL DISTRI WIDTH 14.4 % (0-14.5); WHITE BLOOD COUNT 5.1 10*3/uL (4.8-10.8)
[2021-05-01 15:09] LABS: ALBUMIN 3.5 gm/dl (3.1-4.5); CREATININE 1.36 mg/dL (0.55-1.02); POTASSIUM 4.3 mmol/L (3.5-5.1); TOTAL PROTEIN 7.4 gm/dL (6.4-8.2); URIC ACID 5.9 mg/dL (2.6-6.0)
== END | disposition home or self-care (01) ==
LOC: LAB 13:48
PROVIDERS: ATTEND Internal Medicine Nephrology
DX: N18.32 Chronic kidney disease, stage 3b (principal)

== ENCOUNTER 2021-05-06 16:17 | Inpatient (IN) | payer MEDICARE ==
[~2021-05-06] VITALS: Ht 167.6 cm; Wt 99.3 kg
[~2021-05-06 16:17] MED LIST changes: -ABILIFY2 MG PO; -CYMBALTA60 MG PO; -DONEPEZIL HYDROC5 MG PO; -LATANOPROST2.5 ML OP; -PREDNISONE50 MG PO; -REQUIP2 MG PO; -SERTRALINE HYDR50 MG PO; -VOLTAREN ARTHRI20 GM T
[2021-05-06 16:37] VITALS: BP 105/54
[2021-05-06 16:54] LABS: BASO % 0.2 % (0.0-1.0); EOS % 0.1 % (1.0-4.0); HEMATOCRIT 41.4 % (37.0-47.0); LYMPH # 0.6 10*3/uL (1.3-4.4); LYMPH % 6.8 % (27.0-41.0); MEAN CELL VOLUME 98.8 fl (81.0-99.0); MEAN CORPUSCULAR HGB 30.3 pg (27.0-31.0); MEAN CORPUSCULAR HGB CONC 30.7 g/dl (33.0-37.0); MEAN PLATELET VOLUME 9.4 fl (9.6-12.3); MONO # 0.8 10*3/uL (0.1-1.0); MONO % 9.9 % (3.0-9.0); NEUT # 6.8 10*3/uL (2.3-7.9); NEUT % 82.9 % (47.0-73.0); PLATELET COUNT AUTOMATED 146 10*3/uL (130-400); RED BLOOD COUNT 4.19 10*6/uL (4.10-5.10); RED CELL DISTRI WIDTH 14.6 % (0-14.5); WHITE BLOOD COUNT 8.3 10*3/uL (4.8-10.8)
[2021-05-06 17:10] LABS: ALBUMIN 3.1 gm/dl (3.1-4.5); CREATININE 1.29 mg/dL (0.55-1.02); POTASSIUM 4.4 mmol/L (3.5-5.1); TOTAL PROTEIN 6.7 gm/dL (6.4-8.2)
[2021-05-06 17:17] LABS: ABG BASE EXCESS 2.4 mmol/L (-2.0-2.0); ARTERIAL BLOOD GAS PH 7.414 (7.35-7.45); ARTERIAL BLOOD GAS PO2 63.6 (80-90)
[2021-05-06 20:56] VITALS: BP 124/63
[2021-05-06 21:11] LABS: BILIRUBIN Negative (Negative); BLOOD Negative (Negative); CLARITY Clear (Clear); COLOR Yellow (Yellow); GLUCOSE Negative (Negative); KETONE Negative (Negative); LEUKO ESTERASE 1+ (Negative); NITRITE Negative (Negative)
[2021-05-06 21:18] LABS: BACTERIA 2+; RBC 0-2 rbc/hpf (0-2)
[2021-05-06 22:12] VITALS: BP 109/50
[2021-05-07 00:23] VITALS: BP 120/60
[2021-05-07 02:00] VITALS: BP 128/67
[2021-05-07 06:10] LABS: POTASSIUM 4.7 mmol/L (3.5-5.1)
[2021-05-07 06:16] LABS: BASO % 0.1 % (0.0-1.0); HEMATOCRIT 40.9 % (37.0-47.0); LYMPH # 0.8 10*3/uL (1.3-4.4); LYMPH % 8.6 % (27.0-41.0); MEAN CELL VOLUME 99.8 fl (81.0-99.0); MEAN CORPUSCULAR HGB 30.5 pg (27.0-31.0); MEAN CORPUSCULAR HGB CONC 30.6 g/dl (33.0-37.0); MONO # 0.2 10*3/uL (0.1-1.0); MONO % 2.5 % (3.0-9.0); NEUT # 8.5 10*3/uL (2.3-7.9); NEUT % 88.4 % (47.0-73.0); PLATELET COUNT AUTOMATED 172 10*3/uL (130-400); RED CELL DISTRI WIDTH 14.6 % (0-14.5); WHITE BLOOD COUNT 9.6 10*3/uL (4.8-10.8)
[2021-05-07 06:20] LABS: ALBUMIN 2.8 gm/dl (3.1-4.5); CREATININE 1.35 mg/dL (0.55-1.02); FREE T4 1.09 ng/dl (0.76-1.46); THYROID STIM HORMONE (HS) 0.969 uIU/ml (0.358-4.75); TOTAL PROTEIN 6.6 gm/dL (6.4-8.2)
[2021-05-07 06:33] VITALS: BP 123/61
[2021-05-07 06:55] LABS: VITAMIN D, 25-HYDROXY 30.1 ng/mL (30-100)
[2021-05-07 10:44] VITALS: BP 138/61
[2021-05-07] MEDS ORDERED: DONEPEZIL HYDROC5 MG PO (10:59)
[2021-05-07] MEDS ORDERED: CYCLOBENZAPRINE10 MG PO (10:59)
[2021-05-07] MEDS ORDERED: TRAMADOL HCL50 MG PO (11:01)
[2021-05-07] MEDS ORDERED: ABILIFY2 MG PO (11:02)
[2021-05-07] MEDS ORDERED: LATANOPROST2.5 ML OP (11:02)
[2021-05-07] MEDS ORDERED: REQUIP2 MG PO (11:03)
[2021-05-07] MEDS ORDERED: TOPROL XL25 MG PO (11:04)
[2021-05-07] MEDS ORDERED: LIPITOR10 MG PO (11:05)
[2021-05-07] MEDS ORDERED: CYMBALTA60 MG PO (11:06)
[2021-05-07] MEDS ORDERED: SERTRALINE HYDR50 MG PO (11:09)
[2021-05-07 15:16] VITALS: BP 130/62
[2021-05-07 20:00] VITALS: BP 150/55
[2021-05-08] VITALS: BP 160/70
[2021-05-08 08:00] VITALS: BP 151/63
[2021-05-08 12:00] VITALS: BP 149/58
[2021-05-08 16:00] VITALS: BP 157/72
[2021-05-08 20:00] VITALS: BP 149/67
[2021-05-09] VITALS: BP 126/57
[2021-05-09 06:09] LABS: BASO % 0.1 % (0.0-1.0); HEMATOCRIT 40.8 % (37.0-47.0); LYMPH % 10.9 % (27.0-41.0); MEAN CELL VOLUME 96.7 fl (81.0-99.0); MEAN CORPUSCULAR HGB 29.6 pg (27.0-31.0); MEAN CORPUSCULAR HGB CONC 30.6 g/dl (33.0-37.0); MEAN PLATELET VOLUME 9.7 fl (9.6-12.3); MONO # 0.5 10*3/uL (0.1-1.0); MONO % 4.8 % (3.0-9.0); NEUT # 7.9 10*3/uL (2.3-7.9); NEUT % 83.6 % (47.0-73.0); PLATELET COUNT AUTOMATED 199 10*3/uL (130-400); RED BLOOD COUNT 4.22 10*6/uL (4.10-5.10); RED CELL DISTRI WIDTH 14.4 % (0-14.5); WHITE BLOOD COUNT 9.5 10*3/uL (4.8-10.8)
[2021-05-09 06:22] LABS: ALBUMIN 2.9 gm/dl (3.1-4.5); CREATININE 1.33 mg/dL (0.55-1.02); POTASSIUM 4.2 mmol/L (3.5-5.1); TOTAL PROTEIN 6.6 gm/dL (6.4-8.2)
[2021-05-09 08:00] VITALS: BP 138/80
[2021-05-09] MEDS ORDERED: PREDNISONE50 MG PO (11:42)
[2021-05-09 12:00] VITALS: BP 128/74
[2021-05-09] MEDS ORDERED: VOLTAREN ARTHRI20 GM T (12:32)
== END 2021-05-09 14:15 | disposition home health service (06) | DRG 191 ==
LOC: ED 16:17 → EDHOLD 18:53 → 5E 18:53 → EDHOLD 19:58 → 5E 05-07 14:05
PROVIDERS: Hospitalist; Social Worker Clinical; Student in an Organized Health Care Education/Training Program; ADMIT Internal Medicine; ATTEND Internal Medicine
DX: J44.1 Chronic obstructive pulmonary disease with (acute) exacerbation (principal); J96.11 Chronic respiratory failure with hypoxia; G20 Parkinson's disease; I12.9 Hypertensive chronic kidney disease with stage 1 through stage 4 chronic kidney disease, or unspecified chronic kidney disease; Z96.653 Presence of artificial knee joint, bilateral; N18.32 Chronic kidney disease, stage 3b; E78.5 Hyperlipidemia, unspecified; F32.9 Major depressive disorder, single episode, unspecified; E03.9 Hypothyroidism, unspecified; Z20.822 Contact with and (suspected) exposure to COVID-19; Z95.0 Presence of cardiac pacemaker; Z90.710 Acquired absence of both cervix and uterus; Z88.0 Allergy status to penicillin; Z90.49 Acquired absence of other specified parts of digestive tract; Z79.82 Long term (current) use of aspirin; Z79.899 Other long term (current) drug therapy

== ENCOUNTER → 2021-11-21 | Outpatient (CLI) | payer OTHER ==
[~2021-11-21] MED LIST changes: +ABILIFY2 MG PO; +CYMBALTA60 MG PO; +DONEPEZIL HYDROC5 MG PO; +LATANOPROST2.5 ML OP; +LEVOFLOXACIN750 M2 PO; +MUCUS RELIEF600 MG PO; +PREDNISONE10 MG PO; +PREDNISONE50 MG PO; +REQUIP2 MG PO; +SERTRALINE HYDR50 MG PO; +VOLTAREN ARTHRI20 GM T
[2021-11-21 12:15] LABS: BASO % 0.4 % (0.0-1.0); EOS # 0.1 10*3/uL (0.0-0.4); EOS % 2.6 % (1.0-4.0); HEMATOCRIT 37.8 % (37.0-47.0); LYMPH # 1.3 10*3/uL (1.3-4.4); LYMPH % 28.6 % (27.0-41.0); MEAN CORPUSCULAR HGB 30.8 pg (27.0-31.0); MEAN CORPUSCULAR HGB CONC 29.9 g/dl (33.0-37.0); MEAN PLATELET VOLUME 10.1 fl (9.6-12.3); MONO # 0.4 10*3/uL (0.1-1.0); MONO % 8.5 % (3.0-9.0); NEUT # 2.8 10*3/uL (2.3-7.9); NEUT % 59.7 % (47.0-73.0); PLATELET COUNT AUTOMATED 186 10*3/uL (130-400); RED BLOOD COUNT 3.67 10*6/uL (4.10-5.10); RED CELL DISTRI WIDTH 14.7 % (0-14.5); WHITE BLOOD COUNT 4.6 10*3/uL (4.8-10.8)
[2021-11-21 12:37] LABS: ALBUMIN 3.1 gm/dl (3.1-4.5); CREATININE 1.22 mg/dL (0.55-1.02); POTASSIUM 4.6 mmol/L (3.5-5.1); TOTAL PROTEIN 6.4 gm/dL (6.4-8.2); URIC ACID 6.2 mg/dL (2.6-6.0)
== END | disposition home or self-care (01) ==
LOC: LAB 11:26
PROVIDERS: ATTEND Internal Medicine Nephrology
DX: I12.9 Hypertensive chronic kidney disease with stage 1 through stage 4 chronic kidney disease, or unspecified chronic kidney disease (principal); N18.32 Chronic kidney disease, stage 3b

== ENCOUNTER 2022-02-07 16:37 | Emergency (ER) | payer OTHER ==
[~2022-02-07] VITALS: Ht 167.6 cm; Wt 97.5 kg
[2022-02-07 16:42] VITALS: BP 158/73
[2022-02-07 17:07] LABS: BILIRUBIN Negative (Negative); BLOOD 1+ (Negative); CLARITY Clear (Clear); COLOR Yellow (Yellow); GLUCOSE Negative (Negative); KETONE Negative (Negative); LEUKO ESTERASE 1+ (Negative); NITRITE Negative (Negative); SPECIFIC GRAVITY 1.015 (1.001-1.030); UROBILINOGEN 0.2 E.U./dl (0.0-1.0)
[2022-02-07 17:08] LABS: BASO % 0.2 % (0.0-1.0); EOS # 0.5 10*3/uL (0.0-0.4); EOS % 8.4 % (1.0-4.0); HEMATOCRIT 37.9 % (37.0-47.0); LYMPH # 1.6 10*3/uL (1.3-4.4); LYMPH % 26.7 % (27.0-41.0); MEAN CELL VOLUME 95.2 fl (81.0-99.0); MEAN CORPUSCULAR HGB 28.6 pg (27.0-31.0); MEAN CORPUSCULAR HGB CONC 30.1 g/dl (33.0-37.0); MEAN PLATELET VOLUME 9.1 fl (9.6-12.3); MONO # 0.5 10*3/uL (0.1-1.0); MONO % 8.4 % (3.0-9.0); NEUT # 3.4 10*3/uL (2.3-7.9); NEUT % 56.3 % (47.0-73.0); PLATELET COUNT AUTOMATED 165 10*3/uL (130-400); RED BLOOD COUNT 3.98 10*6/uL (4.10-5.10); RED CELL DISTRI WIDTH 14.2 % (0-14.5); WHITE BLOOD COUNT 6.1 10*3/uL (4.8-10.8)
[2022-02-07 17:21] LABS: BACTERIA 1+; EPITHELIAL CELLS 41-50; RBC 31-40 rbc/hpf (0-2)
[2022-02-07 17:29] LABS: CREATININE 1.23 mg/dL (0.55-1.02); POTASSIUM 4.3 mmol/L (3.5-5.1); TOTAL PROTEIN 6.7 gm/dL (6.4-8.2)
[2022-02-07] MEDS ORDERED: MACROBID100 M1 PO (19:12)
== END 2022-02-07 19:31 | disposition home or self-care (01) ==
LOC: ED 16:37
PROVIDERS: Physician Assistant
DX: N39.0 Urinary tract infection, site not specified (principal); R31.9 Hematuria, unspecified; Z98.890 Other specified postprocedural states; Z90.49 Acquired absence of other specified parts of digestive tract; Z79.899 Other long term (current) drug therapy; Z88.0 Allergy status to penicillin

== ENCOUNTER 2022-04-24 10:48 | Inpatient (IN) | payer MEDICARE ==
[~2022-04-24] VITALS: Ht 167.6 cm; Wt 94.9 kg
[~2022-04-24 10:48] MED LIST changes: +MACROBID100 M1 PO
[2022-04-24 10:49] VITALS: BP 155/60
[2022-04-24 11:24] LABS: BASO % 0.2 % (0.0-1.0); EOS # 0.1 10*3/uL (0.0-0.4); EOS % 1.5 % (1.0-4.0); HEMATOCRIT 37.8 % (37.0-47.0); LYMPH # 1.2 10*3/uL (1.3-4.4); LYMPH % 26.3 % (27.0-41.0); MEAN CELL VOLUME 95.9 fl (81.0-99.0); MEAN CORPUSCULAR HGB 29.2 pg (27.0-31.0); MEAN CORPUSCULAR HGB CONC 30.4 g/dl (33.0-37.0); MEAN PLATELET VOLUME 9.4 fl (9.6-12.3); MONO # 0.4 10*3/uL (0.1-1.0); MONO % 8.1 % (3.0-9.0); NEUT % 63.9 % (47.0-73.0); PLATELET COUNT AUTOMATED 171 10*3/uL (130-400); RED BLOOD COUNT 3.94 10*6/uL (4.10-5.10); WHITE BLOOD COUNT 4.7 10*3/uL (4.8-10.8)
[2022-04-24 11:34] LABS: ACT PARTIAL THROMBO TIME 27.3 SECONDS (20.0-32.1); INTERNATIONAL NORM RATIO 1.1 (2.0-3.5)
[2022-04-24 11:41] LABS: ALKALINE PHOSPHATASE 81 U/L (45-117); BUN 18 mg/dl (7-24); CHLORIDE 114 mmol/L (98-107); CREATININE 1.17 mg/dL (0.55-1.02); LIPASE 134 U/L (73-393); POTASSIUM 4.2 mmol/L (3.5-5.1); SGOT/AST 17 IU/L (3-35); SGPT/ALT 8 U/L (12-78); SODIUM 145 mmol/L (136-145); TOTAL PROTEIN 6.3 gm/dL (6.4-8.2)
[2022-04-24 11:44] LABS: BILIRUBIN Negative (Negative); BLOOD Negative (Negative); CLARITY Cloudy (Clear); COLOR Yellow (Yellow); GLUCOSE Negative (Negative); KETONE Trace (Negative); LEUKO ESTERASE Trace (Negative); NITRITE Negative (Negative); SPECIFIC GRAVITY 1.025 (1.001-1.030); UROBILINOGEN 0.2 E.U./dl (0.0-1.0)
[2022-04-24 12:04] LABS: BACTERIA 3+; HYALINE CAST 0-2; WBC 0-2 wbc/hpf (0-5)
[2022-04-24 16:36] VITALS: BP 141/76
[2022-04-24 18:12] VITALS: BP 138/72
[2022-04-24 20:00] VITALS: BP 153/57
[2022-04-25] VITALS: BP 140/55
[2022-04-25 05:37] LABS: BUN 17 mg/dl (7-24); CHLORIDE 115 mmol/L (98-107); CHOLESTEROL 77 mg/dL (<200); CREATININE 1.01 mg/dL (0.55-1.02); POTASSIUM 4.1 mmol/L (3.5-5.1); SGOT/AST 12 IU/L (3-35); SODIUM 144 mmol/L (136-145); TRIGLYCERIDES 94 mg/dl (<150)
[2022-04-25 05:39] LABS: ALKALINE PHOSPHATASE 71 U/L (45-117); TOTAL PROTEIN 5.7 gm/dL (6.4-8.2)
[2022-04-25 05:45] LABS: LDL CHOLESTEROL 18 mg/dL (9-159); THYROID STIM HORMONE (HS) 0.009 uIU/ml (0.358-4.75)
[2022-04-25 05:49] LABS: SGPT/ALT < 6 U/L (12-78)
[2022-04-25 06:21] LABS: BASO % 0.2 % (0.0-1.0); EOS # 0.1 10*3/uL (0.0-0.4); EOS % 2.6 % (1.0-4.0); HEMATOCRIT 35.7 % (37.0-47.0); LYMPH # 1.5 10*3/uL (1.3-4.4); LYMPH % 29.6 % (27.0-41.0); MEAN CELL VOLUME 96.2 fl (81.0-99.0); MEAN CORPUSCULAR HGB 29.6 pg (27.0-31.0); MEAN CORPUSCULAR HGB CONC 30.8 g/dl (33.0-37.0); MEAN PLATELET VOLUME 10.1 fl (9.6-12.3); MONO # 0.6 10*3/uL (0.1-1.0); MONO % 11.5 % (3.0-9.0); NEUT # 2.8 10*3/uL (2.3-7.9); NEUT % 55.9 % (47.0-73.0); PLATELET COUNT AUTOMATED 169 10*3/uL (130-400); RED BLOOD COUNT 3.71 10*6/uL (4.10-5.10); RED CELL DISTRI WIDTH 15.1 % (0-14.5); WHITE BLOOD COUNT 4.9 10*3/uL (4.8-10.8)
[2022-04-25 08:00] VITALS: BP 145/67
[2022-04-25 12:00] VITALS: BP 143/64
[2022-04-25 13:10] LABS: BILIRUBIN Negative (Negative); BLOOD Negative (Negative); CLARITY Clear (Clear); COLOR Yellow (Yellow); GLUCOSE Negative (Negative); KETONE Negative (Negative); LEUKO ESTERASE Negative (Negative); NITRITE Negative (Negative); PH 5.5 (4.5-8.0); SPECIFIC GRAVITY 1.025 (1.001-1.030); UROBILINOGEN 0.2 E.U./dl (0.0-1.0)
[2022-04-25 13:24] LABS: BACTERIA 1+; EPITHELIAL CELLS TNTC; RBC 0-2 rbc/hpf (0-2)
[2022-04-25 16:00] VITALS: BP 129/60
[2022-04-25 20:00] VITALS: BP 136/52
[2022-04-26] VITALS: BP 128/56
[2022-04-26 04:16] LABS: BASO % 0.2 % (0.0-1.0); EOS # 0.2 10*3/uL (0.0-0.4); EOS % 3.3 % (1.0-4.0); LYMPH # 1.4 10*3/uL (1.3-4.4); LYMPH % 26.1 % (27.0-41.0); MEAN CELL VOLUME 96.8 fl (81.0-99.0); MEAN CORPUSCULAR HGB 30.1 pg (27.0-31.0); MEAN CORPUSCULAR HGB CONC 31.1 g/dl (33.0-37.0); MEAN PLATELET VOLUME 9.8 fl (9.6-12.3); MONO # 0.6 10*3/uL (0.1-1.0); MONO % 11.4 % (3.0-9.0); NEUT # 3.2 10*3/uL (2.3-7.9); NEUT % 58.8 % (47.0-73.0); PLATELET COUNT AUTOMATED 151 10*3/uL (130-400); RED BLOOD COUNT 3.72 10*6/uL (4.10-5.10); RED CELL DISTRI WIDTH 15.4 % (0-14.5); WHITE BLOOD COUNT 5.4 10*3/uL (4.8-10.8)
[2022-04-26 04:32] LABS: CREATININE 1.18 mg/dL (0.55-1.02); POTASSIUM 4.4 mmol/L (3.5-5.1)
[2022-04-26 08:00] VITALS: BP 121/50
[2022-04-26 12:00] VITALS: BP 147/64
[2022-04-26 15:48] VITALS: BP 120/55
[2022-04-26 20:00] VITALS: BP 135/51
[2022-04-27] VITALS: BP 145/73
[2022-04-27 04:58] LABS: CREATININE 1.12 mg/dL (0.55-1.02); POTASSIUM 4.6 mmol/L (3.5-5.1)
[2022-04-27 06:20] LABS: BASO % 0.2 % (0.0-1.0); EOS # 0.2 10*3/uL (0.0-0.4); EOS % 3.4 % (1.0-4.0); HEMATOCRIT 37.1 % (37.0-47.0); LYMPH # 1.7 10*3/uL (1.3-4.4); MEAN CELL VOLUME 96.1 fl (81.0-99.0); MEAN CORPUSCULAR HGB 29.8 pg (27.0-31.0); MEAN PLATELET VOLUME 10.3 fl (9.6-12.3); MONO # 0.7 10*3/uL (0.1-1.0); MONO % 11.1 % (3.0-9.0); NEUT # 3.3 10*3/uL (2.3-7.9); NEUT % 56.1 % (47.0-73.0); PLATELET COUNT AUTOMATED 160 10*3/uL (130-400); RED BLOOD COUNT 3.86 10*6/uL (4.10-5.10); WHITE BLOOD COUNT 5.8 10*3/uL (4.8-10.8)
[2022-04-27 08:00] VITALS: BP 132/68
[2022-04-27 12:00] VITALS: BP 135/56
[2022-04-27 16:00] VITALS: BP 135/60
[2022-04-27 20:00] VITALS: BP 146/68
[2022-04-28] VITALS: BP 132/59
[2022-04-28 05:27] LABS: BUN 24 mg/dl (7-24); CHLORIDE 111 mmol/L (98-107); CREATININE 1.05 mg/dL (0.55-1.02); POTASSIUM 4.4 mmol/L (3.5-5.1); SODIUM 144 mmol/L (136-145)
[2022-04-28 06:13] LABS: BASO % 0.2 % (0.0-1.0); EOS # 0.2 10*3/uL (0.0-0.4); EOS % 3.4 % (1.0-4.0); HEMATOCRIT 35.3 % (37.0-47.0); LYMPH # 1.6 10*3/uL (1.3-4.4); LYMPH % 29.8 % (27.0-41.0); MEAN CELL VOLUME 95.4 fl (81.0-99.0); MEAN CORPUSCULAR HGB CONC 31.4 g/dl (33.0-37.0); MEAN PLATELET VOLUME 10.2 fl (9.6-12.3); MONO # 0.6 10*3/uL (0.1-1.0); MONO % 11.3 % (3.0-9.0); NEUT % 55.1 % (47.0-73.0); PLATELET COUNT AUTOMATED 146 10*3/uL (130-400); RED CELL DISTRI WIDTH 14.9 % (0-14.5); WHITE BLOOD COUNT 5.5 10*3/uL (4.8-10.8)
[2022-04-28 08:00] VITALS: BP 157/72
[2022-04-28 12:00] VITALS: BP 115/60
[2022-04-28 16:00] VITALS: BP 120/98
[2022-04-28 18:41] LABS: BILIRUBIN Negative (Negative); BLOOD Negative (Negative); CLARITY Cloudy (Clear); COLOR Yellow (Yellow); GLUCOSE Negative (Negative); KETONE Negative (Negative); LEUKO ESTERASE 1+ (Negative); NITRITE Negative (Negative); UROBILINOGEN 0.2 E.U./dl (0.0-1.0)
[2022-04-28 18:51] LABS: BACTERIA 2+; EPITHELIAL CELLS TNTC
[2022-04-28 20:00] VITALS: BP 139/67
[2022-04-29] VITALS: BP 139/50
[2022-04-29 08:00] VITALS: BP 147/55
[2022-04-29 08:10] LABS: BASO % 0.2 % (0.0-1.0); EOS # 0.1 10*3/uL (0.0-0.4); EOS % 3.1 % (1.0-4.0); HEMATOCRIT 36.3 % (37.0-47.0); LYMPH # 1.4 10*3/uL (1.3-4.4); LYMPH % 29.5 % (27.0-41.0); MEAN CORPUSCULAR HGB 29.3 pg (27.0-31.0); MEAN CORPUSCULAR HGB CONC 30.9 g/dl (33.0-37.0); MEAN PLATELET VOLUME 9.4 fl (9.6-12.3); MONO # 0.5 10*3/uL (0.1-1.0); MONO % 10.5 % (3.0-9.0); NEUT # 2.6 10*3/uL (2.3-7.9); NEUT % 56.5 % (47.0-73.0); PLATELET COUNT AUTOMATED 137 10*3/uL (130-400); RED BLOOD COUNT 3.82 10*6/uL (4.10-5.10); WHITE BLOOD COUNT 4.6 10*3/uL (4.8-10.8)
[2022-04-29 08:22] LABS: CREATININE 1.07 mg/dL (0.55-1.02); POTASSIUM 4.7 mmol/L (3.5-5.1)
[2022-04-29 12:00] VITALS: BP 141/48
[2022-04-29 16:00] VITALS: BP 121/58
[2022-04-29 20:00] VITALS: BP 144/48
[2022-04-30] VITALS: BP 146/55
[2022-04-30 08:00] VITALS: BP 140/67
[2022-04-30] MEDS ORDERED: LEVOTHYROXINE100 MC1 PO (11:01)
[2022-04-30] MEDS ORDERED: NEURONTIN600 MG PO (11:01)
[2022-04-30 12:00] VITALS: BP 151/53
== END 2022-04-30 14:45 | DRG 312 ==
LOC: ED 10:48 → EDHOLD 15:48 → 4E 15:48 → EDHOLD 16:09 → 4E 17:38
PROVIDERS: Emergency Medicine; Family Medicine; Internal Medicine; Student in an Organized Health Care Education/Training Program; ADMIT Internal Medicine; ATTEND Internal Medicine
DX: R55 Syncope and collapse (principal); J96.11 Chronic respiratory failure with hypoxia; R19.7 Diarrhea, unspecified; R53.81 Other malaise; G20 Parkinson's disease; I48.91 Unspecified atrial fibrillation; Z96.653 Presence of artificial knee joint, bilateral; J44.9 Chronic obstructive pulmonary disease, unspecified; F32.9 Major depressive disorder, single episode, unspecified; E78.5 Hyperlipidemia, unspecified; N18.30 Chronic kidney disease, stage 3 unspecified; E03.9 Hypothyroidism, unspecified; D72.819 Decreased white blood cell count, unspecified; E87.8 Other disorders of electrolyte and fluid balance, not elsewhere classified; R73.9 Hyperglycemia, unspecified; E83.42 Hypomagnesemia; I12.9 Hypertensive chronic kidney disease with stage 1 through stage 4 chronic kidney disease, or unspecified chronic kidney disease; E05.80 Other thyrotoxicosis without thyrotoxic crisis or storm; Z99.81 Dependence on supplemental oxygen; Z88.0 Allergy status to penicillin; Z90.710 Acquired absence of both cervix and uterus; Z90.49 Acquired absence of other specified parts of digestive tract; Z95.0 Presence of cardiac pacemaker; Z82.3 Family history of stroke; Z82.49 Family history of ischemic heart disease and other diseases of the circulatory system

== ENCOUNTER → 2023-08-26 | Outpatient (CLI) | payer MEDICARE ==
[2023-08-26 12:50] LABS: POTASSIUM 5.6 mmol/L (3.4-5.1)
== END | disposition home or self-care (01) ==
LOC: LAB 12:07
PROVIDERS: ATTEND Student in an Organized Health Care Education/Training Program
DX: N18.32 Chronic kidney disease, stage 3b (principal); N17.9 Acute kidney failure, unspecified

== ENCOUNTER 2024-01-17 10:59 | Inpatient (IN) | payer OTHER ==
[~2024-01-17] VITALS: Ht 167.6 cm; Wt 88.0 kg
[2024-01-17 11:06] VITALS: BP 160/59
[2024-01-17 11:53] LABS: BASO % 0.2 % (0.0-1.0); EOS # 0.1 10*3/uL (0.0-0.4); EOS % 2.4 % (1.0-4.0); HEMATOCRIT 34.2 % (37.0-47.0); LYMPH # 0.9 10*3/uL (1.3-4.4); LYMPH % 16.3 % (27.0-41.0); MEAN CELL VOLUME 101.2 fl (81.0-99.0); MEAN CORPUSCULAR HGB 29.9 pg (27.0-31.0); MEAN CORPUSCULAR HGB CONC 29.5 g/dl (33.0-37.0); MEAN PLATELET VOLUME 9.4 fl (9.6-12.3); MONO # 0.5 10*3/uL (0.1-1.0); MONO % 8.2 % (3.0-9.0); NEUT % 72.5 % (47.0-73.0); PLATELET COUNT AUTOMATED 145 10*3/uL (130-400); RED BLOOD COUNT 3.38 10*6/uL (4.10-5.10); RED CELL DISTRI WIDTH 14.8 % (0-14.5); WHITE BLOOD COUNT 5.5 10*3/uL (4.8-10.8)
[2024-01-17 12:03] LABS: ACT PARTIAL THROMBO TIME 30.6 SECONDS (20.0-32.1)
[2024-01-17 12:19] LABS: POTASSIUM 4.5 mmol/L (3.4-5.1); TOTAL PROTEIN 5.9 gm/dL (6.0-8.0)
[2024-01-17] MEDS ORDERED: Ondansetron Hydrochloride 4 MG/2 ML VIAL IV PRN (14:15)
[2024-01-17] MEDS ORDERED: ACETAMINOPHEN 325 MG TAB PO PRN (14:15)
[2024-01-17] MEDS ORDERED: Magnesium Hydroxide 30 ML UDC PO PRN (14:15)
[2024-01-17] MEDS ORDERED: DEXTROSE 10 % IN WATER 250 ML IV PRN (14:25)
[2024-01-17] MEDS ORDERED: ASPIRIN ENTERIC COATED 81 MG TAB PO SCH (15:54)
[2024-01-17 16:00] VITALS: BP 153/65
[2024-01-17] MEDS ORDERED: Acetaminophen/Hydrocodone 5 MG/325 MG TABLET PO PRN (16:05)
[2024-01-17] MEDS ORDERED: INSULIN LISPRO 1 UNIT/0.01 ML SQ SCH (16:30)
[2024-01-17] MEDS ORDERED: METOPROLOL SUCCINATE XR 25 MG TAB PO SCH (17:00)
[2024-01-17 18:07] LABS: BILIRUBIN Negative (Negative); BLOOD Negative (Negative); CLARITY Clear (Clear); COLOR Yellow (Yellow); GLUCOSE Negative (Negative); KETONE Negative (Negative); LEUKO ESTERASE Negative (Negative); NITRITE Negative (Negative); PH 5.5 (4.5-8.0); UROBILINOGEN 0.2 E.U./dl (0.0-1.0)
[2024-01-17 18:33] LABS: BACTERIA 1+; WBC 0-2 wbc/hpf (0-5)
[2024-01-17 20:00] VITALS: BP 155/84; BP 170/64
[2024-01-17] MEDS ORDERED: Levothyroxine Sodium 100 MCG TAB PO SCH (20:00)
[2024-01-17] MEDS ORDERED: ARIPiprazole 2 MG TAB PO SCH (22:00)
[2024-01-17] MEDS ORDERED: Donepezil Hydrochloride 5 MG TAB PO SCH (22:00)
[2024-01-17] MEDS ORDERED: Carbidopa/Levodopa CR 25/100MG 1 TAB PO SCH (22:00)
[2024-01-17] MEDS ORDERED: LATANOPROST 0.005% 2.5 ML BOTTLE OPH SCH (22:00)
[2024-01-17] MEDS ORDERED: APIXABAN 5 MG TAB PO SCH (22:00)
[2024-01-17] MEDS ORDERED: ATORVASTATIN CALCIUM 40 MG TABLET PO SCH (22:00)
[2024-01-17] MEDS ORDERED: CLINDAMYCIN HCL 300 MG CAPSULE PO SCH (22:00)
[2024-01-17] MEDS ORDERED: Ropinirole Hydrochloride 1 MG TAB PO SCH (22:00)
[2024-01-17] MEDS ORDERED: Sertraline Hydrochloride 50 MG TAB PO SCH (22:00)
[2024-01-18] VITALS: BP 160/53
[2024-01-18 06:04] LABS: BASO % 0.2 % (0.0-1.0); EOS # 0.2 10*3/uL (0.0-0.4); EOS % 4.8 % (1.0-4.0); HEMATOCRIT 34.3 % (37.0-47.0); LYMPH # 1.1 10*3/uL (1.3-4.4); LYMPH % 22.1 % (27.0-41.0); MEAN CELL VOLUME 101.5 fl (81.0-99.0); MEAN CORPUSCULAR HGB 29.3 pg (27.0-31.0); MEAN CORPUSCULAR HGB CONC 28.9 g/dl (33.0-37.0); MEAN PLATELET VOLUME 9.8 fl (9.6-12.3); MONO # 0.6 10*3/uL (0.1-1.0); MONO % 12.2 % (3.0-9.0); NEUT # 2.9 10*3/uL (2.3-7.9); NEUT % 60.5 % (47.0-73.0); PLATELET COUNT AUTOMATED 135 10*3/uL (130-400); RED BLOOD COUNT 3.38 10*6/uL (4.10-5.10); RED CELL DISTRI WIDTH 14.7 % (0-14.5); WHITE BLOOD COUNT 4.8 10*3/uL (4.8-10.8)
[2024-01-18 06:17] LABS: ALKALINE PHOSPHATASE 80 U/L (46-116); BUN 30 mg/dl (9-23); CHLORIDE 109 mmol/L (98-107); CHOLESTEROL 109 mg/dL (<200); LDL CHOLESTEROL 52 mg/dL (9-159); POTASSIUM 4.3 mmol/L (3.4-5.1); TOTAL PROTEIN 5.5 gm/dL (6.0-8.0); TRIGLYCERIDES 68 mg/dl (<150)
[2024-01-18 06:33] LABS: SGPT/ALT < 7 U/L (5-49)
[2024-01-18 08:00] VITALS: BP 168/63
[2024-01-18] MEDS ORDERED: GABAPENTIN 600 MG TAB PO SCH (10:00)
[2024-01-18] MEDS ORDERED: Acetaminophen/Hydrocodone 5 MG/325 MG TABLET PO PRN (10:11)
[2024-01-18 12:00] VITALS: BP 128/44
[2024-01-18 16:00] VITALS: BP 136/54
[2024-01-18 20:00] VITALS: BP 146/50
[2024-01-19] VITALS: BP 157/46
[2024-01-19 06:07] LABS: BASO % 0.2 % (0.0-1.0); EOS # 0.3 10*3/uL (0.0-0.4); EOS % 5.6 % (1.0-4.0); HEMATOCRIT 33.1 % (37.0-47.0); LYMPH # 1.5 10*3/uL (1.3-4.4); LYMPH % 31.2 % (27.0-41.0); MEAN CELL VOLUME 101.5 fl (81.0-99.0); MEAN CORPUSCULAR HGB 29.8 pg (27.0-31.0); MEAN CORPUSCULAR HGB CONC 29.3 g/dl (33.0-37.0); MONO # 0.6 10*3/uL (0.1-1.0); MONO % 11.9 % (3.0-9.0); NEUT # 2.4 10*3/uL (2.3-7.9); NEUT % 50.9 % (47.0-73.0); PLATELET COUNT AUTOMATED 135 10*3/uL (130-400); RED BLOOD COUNT 3.26 10*6/uL (4.10-5.10); RED CELL DISTRI WIDTH 14.6 % (0-14.5); WHITE BLOOD COUNT 4.8 10*3/uL (4.8-10.8)
[2024-01-19 06:09] LABS: POTASSIUM 4.8 mmol/L (3.4-5.1)
[2024-01-19 08:00] VITALS: BP 158/59
[2024-01-19] MEDS ORDERED: Albuterol Sulf/Ipratropium 3 ML VIAL NEB PRN (09:05)
[2024-01-19] MEDS ORDERED: FUROSEMIDE 20 MG/2 ML VIAL IV ONE (09:05)
[2024-01-19 12:00] VITALS: BP 146/59
[2024-01-19 16:00] VITALS: BP 142/68
[2024-01-19 20:00] VITALS: BP 152/50
[2024-01-20] VITALS: BP 148/78; BP 175/51
[2024-01-20 06:34] LABS: BASO % 0.2 % (0.0-1.0); EOS # 0.3 10*3/uL (0.0-0.4); EOS % 4.8 % (1.0-4.0); HEMATOCRIT 33.3 % (37.0-47.0); LYMPH # 1.6 10*3/uL (1.3-4.4); LYMPH % 30.4 % (27.0-41.0); MEAN CELL VOLUME 99.7 fl (81.0-99.0); MEAN CORPUSCULAR HGB 29.6 pg (27.0-31.0); MEAN CORPUSCULAR HGB CONC 29.7 g/dl (33.0-37.0); MEAN PLATELET VOLUME 9.4 fl (9.6-12.3); MONO # 0.6 10*3/uL (0.1-1.0); MONO % 10.5 % (3.0-9.0); NEUT # 2.8 10*3/uL (2.3-7.9); NEUT % 53.9 % (47.0-73.0); PLATELET COUNT AUTOMATED 139 10*3/uL (130-400); RED BLOOD COUNT 3.34 10*6/uL (4.10-5.10); RED CELL DISTRI WIDTH 14.5 % (0-14.5); WHITE BLOOD COUNT 5.2 10*3/uL (4.8-10.8)
[2024-01-20 06:51] LABS: POTASSIUM 4.7 mmol/L (3.4-5.1)
[2024-01-20 08:00] VITALS: BP 158/62
[2024-01-20 12:00] VITALS: BP 142/47
[2024-01-20] MEDS ORDERED: BISACODYL 5 MG TAB PO PRN (12:45)
[2024-01-20] MEDS ORDERED: Promethazine Hydrochloride 25 MG TAB PO ONE (12:45)
[2024-01-20] MEDS ORDERED: CLINDAMYCIN HC300 MG PO (13:37)
[2024-01-20] MEDS ORDERED: HYDROCODONE-AC1 EAC1 PO (13:39)
== END 2024-01-20 17:19 | disposition home health service (06) | DRG 280 ==
LOC: ED 10:59 → EDHOLD 13:15 → 5E 13:15
PROVIDERS: Physician Assistant; Student in an Organized Health Care Education/Training Program; ADMIT Internal Medicine; ATTEND Internal Medicine
DX: I21.4 Non-ST elevation (NSTEMI) myocardial infarction (principal); I50.33 Acute on chronic diastolic (congestive) heart failure; N17.0 Acute kidney failure with tubular necrosis; E44.0 Moderate protein-calorie malnutrition; J96.11 Chronic respiratory failure with hypoxia; I13.0 Hypertensive heart and chronic kidney disease with heart failure and stage 1 through stage 4 chronic kidney disease, or unspecified chronic kidney disease; I48.91 Unspecified atrial fibrillation; E11.22 Type 2 diabetes mellitus with diabetic chronic kidney disease; F32.A Depression, unspecified; E78.5 Hyperlipidemia, unspecified; E11.40 Type 2 diabetes mellitus with diabetic neuropathy, unspecified; G20.A1 Parkinson's disease without dyskinesia, without mention of fluctuations; D53.9 Nutritional anemia, unspecified; E87.8 Other disorders of electrolyte and fluid balance, not elsewhere classified; E11.65 Type 2 diabetes mellitus with hyperglycemia; K25.9 Gastric ulcer, unspecified as acute or chronic, without hemorrhage or perforation; N18.32 Chronic kidney disease, stage 3b; E05.80 Other thyrotoxicosis without thyrotoxic crisis or storm; G89.18 Other acute postprocedural pain; Z95.0 Presence of cardiac pacemaker; Z79.899 Other long term (current) drug therapy; Z79.01 Long term (current) use of anticoagulants; Z79.2 Long term (current) use of antibiotics; Z88.0 Allergy status to penicillin; Z91.09 Other allergy status, other than to drugs and biological substances; Z90.710 Acquired absence of both cervix and uterus; Z90.49 Acquired absence of other specified parts of digestive tract; Z96.653 Presence of artificial knee joint, bilateral; Z82.49 Family history of ischemic heart disease and other diseases of the circulatory system; Z82.3 Family history of stroke; Z83.3 Family history of diabetes mellitus; Z99.81 Dependence on supplemental oxygen; Z68.31 Body mass index [BMI] 31.0-31.9, adult

== ENCOUNTER → 2024-03-02 | Outpatient (CLI) | payer OTHER ==
[~2024-03-02] MED LIST changes: +CLINDAMYCIN HC300 MG PO; +HYDROCODONE-AC1 EAC1 PO
[2024-03-02 09:16] LABS: BASO % 0.3 % (0.0-1.0); EOS # 0.1 10*3/uL (0.0-0.4); EOS % 3.2 % (1.0-4.0); HEMATOCRIT 36.5 % (37.0-47.0); LYMPH # 1.2 10*3/uL (1.3-4.4); LYMPH % 32.6 % (27.0-41.0); MEAN CORPUSCULAR HGB 31.2 pg (27.0-31.0); MEAN CORPUSCULAR HGB CONC 31.2 g/dl (33.0-37.0); MEAN PLATELET VOLUME 9.8 fl (9.6-12.3); MONO # 0.3 10*3/uL (0.1-1.0); MONO % 8.1 % (3.0-9.0); NEUT # 2.1 10*3/uL (2.3-7.9); NEUT % 55.5 % (47.0-73.0); PLATELET COUNT AUTOMATED 175 10*3/uL (130-400); RED BLOOD COUNT 3.65 10*6/uL (4.10-5.10); RED CELL DISTRI WIDTH 15.4 % (0-14.5); WHITE BLOOD COUNT 3.7 10*3/uL (4.8-10.8)
[2024-03-02 09:24] LABS: URINE CREATININE RANDOM 151.07 mg/dL
[2024-03-02 09:26] LABS: BILIRUBIN Negative (Negative); BLOOD Negative (Negative); CLARITY Cloudy (Clear); COLOR Yellow (Yellow); GLUCOSE Negative (Negative); KETONE Trace (Negative); LEUKO ESTERASE 1+ (Negative); NITRITE Negative (Negative); SPECIFIC GRAVITY 1.025 (1.001-1.030)
[2024-03-02 09:37] LABS: POTASSIUM 4.9 mmol/L (3.4-5.1); URIC ACID 6.5 mg/dL (3.1-7.8)
[2024-03-02 09:44] LABS: BACTERIA 2+; EPITHELIAL CELLS 41-50
[2024-03-02 09:57] LABS: VITAMIN D, 25-HYDROXY 31.3 ng/mL (30-100)
== END | disposition home or self-care (01) ==
LOC: LAB 08:47
PROVIDERS: ATTEND Internal Medicine Nephrology
DX: N18.30 Chronic kidney disease, stage 3 unspecified (principal); D63.1 Anemia in chronic kidney disease; E55.9 Vitamin D deficiency, unspecified

== ENCOUNTER 2024-06-26 18:21 | Emergency (ER) | payer OTHER ==
[~2024-06-26] VITALS: Ht 167.6 cm; Wt 83.5 kg
[2024-06-26] MEDS ORDERED: HYDROCHLOROTHIAZIDE 25 MG TAB PO ONE (18:50)
[2024-06-26 19:16] LABS: BASO % 0.5 % (0.0-1.0); EOS # 0.1 10*3/uL (0.0-0.4); EOS % 2.5 % (1.0-4.0); HEMATOCRIT 33.8 % (37.0-47.0); LYMPH # 1.7 10*3/uL (1.3-4.4); MEAN CELL VOLUME 101.8 fl (81.0-99.0); MEAN CORPUSCULAR HGB 30.1 pg (27.0-31.0); MEAN CORPUSCULAR HGB CONC 29.6 g/dl (33.0-37.0); MEAN PLATELET VOLUME 9.3 fl (9.6-12.3); MONO # 0.5 10*3/uL (0.1-1.0); MONO % 10.6 % (3.0-9.0); NEUT # 2.1 10*3/uL (2.3-7.9); NEUT % 47.2 % (47.0-73.0); PLATELET COUNT AUTOMATED 143 10*3/uL (130-400); RED BLOOD COUNT 3.32 10*6/uL (4.10-5.10); RED CELL DISTRI WIDTH 15.7 % (0-14.5); WHITE BLOOD COUNT 4.4 10*3/uL (4.8-10.8)
[2024-06-26 19:36] LABS: ALKALINE PHOSPHATASE 84 U/L (46-116); BUN 29 mg/dl (9-23); CHLORIDE 107 mmol/L (98-107); POTASSIUM 5.1 mmol/L (3.4-5.1); TOTAL PROTEIN 6.3 gm/dL (6.0-8.0)
[2024-06-26 19:41] LABS: SGPT/ALT < 7 U/L (5-49)
[2024-06-26] MEDS ORDERED: hydrALAZINE hydrochloride 20 MG/ML VIAL IV ONE (19:50)
[2024-06-26 20:25] VITALS: BP 169/65
== END 2024-06-26 20:36 | disposition home or self-care (01) ==
LOC: ED 18:21
PROVIDERS: Physician Assistant Medical
DX: I16.0 Hypertensive urgency (principal); F41.9 Anxiety disorder, unspecified; I10 Essential (primary) hypertension; F32.A Depression, unspecified; K21.9 Gastro-esophageal reflux disease without esophagitis; E78.00 Pure hypercholesterolemia, unspecified; I48.91 Unspecified atrial fibrillation; Z88.0 Allergy status to penicillin; Z90.710 Acquired absence of both cervix and uterus; Z90.49 Acquired absence of other specified parts of digestive tract; Z98.890 Other specified postprocedural states; Z96.653 Presence of artificial knee joint, bilateral

== ENCOUNTER 2025-06-17 12:03 | Emergency (ER) | payer OTHER ==
[~2025-06-17] VITALS: Ht 167.6 cm; Wt 74.4 kg
[2025-06-17 12:08] VITALS: BP 152/65
[2025-06-17] MEDS ORDERED: NEURONTIN300 MG PO (12:18)
[2025-06-17] MEDS ORDERED: GEMTESA75 MG PO (12:22)
[2025-06-17] MEDS ORDERED: MEMANTINE HCL10 MG PO (12:23)
[2025-06-17] MEDS ORDERED: HYDROCHLOROTHIA25 M1 PO (12:25)
[2025-06-17] MEDS ORDERED: LEVOTHYROXINE137 MCG PO (12:26)
[2025-06-17] MEDS ORDERED: GALANTAMINE HBR8 MG PO (12:26)
[2025-06-17] MEDS ORDERED: PRESERVISION A1 EAC8 PO (12:27)
== END 2025-06-17 16:05 | disposition home or self-care (01) ==
LOC: ED 12:03
DX: S32.2XXA Fracture of coccyx, initial encounter for closed fracture (principal); I48.91 Unspecified atrial fibrillation; I25.2 Old myocardial infarction; E11.9 Type 2 diabetes mellitus without complications; I10 Essential (primary) hypertension; Z95.0 Presence of cardiac pacemaker; Z88.0 Allergy status to penicillin; Z79.899 Other long term (current) drug therapy; Z79.82 Long term (current) use of aspirin; Z96.653 Presence of artificial knee joint, bilateral; Z90.710 Acquired absence of both cervix and uterus; Z90.49 Acquired absence of other specified parts of digestive tract; Z98.890 Other specified postprocedural states; W01.0XXA Fall on same level from slipping, tripping and stumbling without subsequent striking against object, initial encounter; Y93.89 Activity, other specified; Y92.89 Other specified places as the place of occurrence of the external cause; Y99.8 Other external cause status